=== PATIENT | male | born 1970 | race Caucasian/White ===

== ENCOUNTER 2016-11-10 16:51 | Observation (INO) | payer OTHER ==
[~2016-11-10] VITALS: Ht 182.9 cm; Wt 78.4 kg
[~2016-11-10 16:51] MED LIST: ASPIR-LOW81 MG PO; ASPIRIN E.C. 8181 MG PO; ATIVAN 1MG T1 MG/TAB PO; ATIVAN2 MG PO; B-1100 MG PO; BACTRIM DS 8001 TAB PO; CARAFATE 1GM1 G PO; CARAFATE S1 GM/10 ML PO; CEFTIN250 M1 PO; CEFTIN250 MG PO; CEPHALEXIN500 M1 PO; CIPRO 500MG TA500 MG PO; DAZIDOX10 MG PO; DILAUDID 2MG TAB2 MG PO; DILAUDID 4MG TAB4 MG PO; FLOMAX 0.40.4 MG/CAP PO; FOLIC ACID 11 MG/TA1 PO; GLUCOPHAGE500 MG/TAB PO; GLUCOTROL 5M5 MG/TAB PO; IBUPROFEN800 MG PO; K-DUR20 MEQ PO; LEVAQUIN 750MG750 M1 PO; LOPRESSOR100 MG PO; LORTAB 5/500 501 TAB PO; MAALOX PLUS 3030 ML PO; MS CONTIN 330 MG/TAB PO; MULTIPLE VITAMI1 CAP PO; Miralax Packet PO; NEXIUM 40MG40 MG PO; NICODERM C21 MG/PATC TD; NORCO 325 MG-51 TAB PO; NORCO 325 MG-7.1 TAB PO; NORVASC 10MG10 MG PO; OXY IR5 MG PO; PANCREAZE 437501 ECC PO; PEPCID 20MG TAB20 MG; PERCOCET 325 MG1 TA2 PO; PERCOCET 325 MG1 TAB PO; PERCR 7.5 PO; PHENERGAN 25 TA25 MG PO; PRIL40; PRILOSEC 20MG20 MG PO; PRILOTC; PRINIVIL10 MG PO; ROXICODONE 55 MG/TAB PO; SENOKOT S 50 MG1 TAB PO; THERAGRAN TAB1 UDTAB PO; THERAGRAN1 TA1 PO; THIAMINE 1100 MG/TAB PO; THIAMINE HCL PO; TOPROL XL100 MG PO; ULTRAM 50MG TAB50 MG PO; ULTRAM100 MG PO; VALIUM 10MG10 MG/TAB PO; ZESTRIL 10MG10 MG PO; ZESTRIL 20MG TA20 MG PO; ZITHROMAX Z PA250 MG PO; ZOFRAN 4MG T4 MG/TAB PO
[2016-11-10 19:45] LABS: BASO % 0.7 % (0.0-2.0); EOS % 0.5 % (0-4.0); GRAN # 4.1 (1.4-6.5); GRAN % 67.6 % (42.2-75.2); HEMATOCRIT 44.2 % (42.0-52.0); HEMOGLOBIN 15.1 g/dl (13.5-18.0); LYMPH # 1.2 (1.2-3.4); LYMPH % 19.8 % (20.0-51.0); MEAN CELL VOLUME 101 fl (80.0-100.0); MEAN CORPUSCULAR HEMOGLOBIN 35 pg (27.0-31.0); MEAN CORPUSCULAR HGB CONC 34 g/dl (33.0-37.0); MEAN PLATELET VOLUME 10.6 fl (7.4-10.4); MONO # 0.7 (0.1-0.6); MONO % 11.1 % (1.7-9.3); PLATELET COUNT 94 K/mm3 (130-400); RED BLOOD COUNT 4.36 M/mm3 (4.20-5.60); REDCELL DISTRIBUTION WIDTH-CV 12.3 % (11.5-14.5)
[2016-11-10 19:54] LABS: ADJUSTED CALCIUM 9.3 mg/dL (8.4-10.2); ALBUMIN 3.9 gm/dL (3.5-5.0); BILIRUBIN,TOTAL 1.1 mg/dL (0.0-1.0); CALCIUM 9.2 mg/dL (8.4-10.2); CREATININE, serum 0.6 mg/dL (0.66-1.25); POTASSIUM 3.6 mmol/L (3.4-5.0); TOTAL PROTEIN 7.9 gm/dL (6.4-8.2)
[2016-11-10 20:31] LABS: PH 7 (5-8); SQUAMOUS EPITHELIAL 0-2 /hpf; URINE APPEARANCE Clear; URINE BACTERIA None Seen /hpf; URINE BILIRUBIN Negative (NEGATIVE); URINE BLOOD Negative (NEGATIVE); URINE COLOR Yellow; URINE GLUCOSE 3+ (NEGATIVE); URINE KETONE Trace (NEGATIVE); URINE WBC 0-2 /hpf
[2016-11-10 21:34] VITALS: BP 144/98; PULSE 90; TEMP 98.9
[2016-11-10 23:25] VITALS: BP 135/55; BP 144/92; PULSE 107; PULSE 98; TEMP 98.5
[2016-11-11 05:00] VITALS: BP 148/97; PULSE 73; TEMP 98.3
[2016-11-11 07:57] VITALS: BP 146/95; PULSE 76; TEMP 98.3
[2016-11-11] MEDS ORDERED: ZESTRIL 20MG TA20 MG PO (10:56)
[2016-11-11] MEDS ORDERED: LOPRESSOR100 MG PO (10:56)
[2016-11-11] MEDS ORDERED: NEURONTIN100 MG/CAP PO (10:57)
[2016-11-11] MEDS ORDERED: K-DUR20 MEQ PO (10:57)
[2016-11-11] MEDS ORDERED: PRILOTC PO (10:58)
[2016-11-11] MEDS ORDERED: GLUCOPHAGE500 MG/TAB PO (10:58)
[2016-11-11] MEDS ORDERED: NEXIUM 40MG40 MG PO (10:58)
[2016-11-11] MEDS ORDERED: GLUCOTROL 5M5 MG/TAB PO (10:58)
[2016-11-11] MEDS ORDERED: B-121000 MCG PO (10:59)
[2016-11-11] MEDS ORDERED: NATURE'S BLEND100 M2 PO (11:00)
[2016-11-11] MEDS ORDERED: ULTRAM 50MG TAB50 MG PO (11:02)
[2016-11-11] MEDS ORDERED: VIOKACE10 PO (11:11)
[2016-11-11 11:52] VITALS: BP 161/98; PULSE 78; TEMP 98.3
== END 2016-11-11 13:10 | disposition home or self-care (01) ==
LOC: COL.ER 16:51 → MEDICAL 20:49
PROVIDERS: Family Medicine
DX: K86.0 Alcohol-induced chronic pancreatitis (principal); R52 Pain, unspecified; F10.20 Alcohol dependence, uncomplicated; I10 Essential (primary) hypertension; E11.40 Type 2 diabetes mellitus with diabetic neuropathy, unspecified; Z91.14 Patient's other noncompliance with medication regimen; I49.9 Cardiac arrhythmia, unspecified
CPT/HCPCS: G0378; J2270; J2405; J7030

== ENCOUNTER 2016-11-14 16:15 | Emergency (ER) | payer OTHER ==
[~2016-11-14] VITALS: Ht 182.9 cm; Wt 77.3 kg
[~2016-11-14 16:15] MED LIST changes: +B-121000 MCG PO; +NATURE'S BLEND100 M2 PO; +NEURONTIN100 MG/CAP PO; +PRILOTC PO; +VIOKACE10 PO
[2016-11-14 16:17] VITALS: TEMP 98.4
[2016-11-14 17:05] LABS: BASO % 0.6 % (0.0-2.0); EOS # 0.2 (0.0-0.7); EOS % 2.1 % (0-4.0); GRAN # 4.6 (1.4-6.5); GRAN % 62.9 % (42.2-75.2); HEMATOCRIT 45.5 % (42.0-52.0); HEMOGLOBIN 15.8 g/dl (13.5-18.0); LYMPH # 1.5 (1.2-3.4); LYMPH % 20.7 % (20.0-51.0); MEAN CELL VOLUME 103 fl (80.0-100.0); MEAN CORPUSCULAR HEMOGLOBIN 36 pg (27.0-31.0); MEAN CORPUSCULAR HGB CONC 35 g/dl (33.0-37.0); MEAN PLATELET VOLUME 10.8 fl (7.4-10.4); MONO % 13.1 % (1.7-9.3); PLATELET COUNT 140 K/mm3 (130-400); RED BLOOD COUNT 4.42 M/mm3 (4.20-5.60); REDCELL DISTRIBUTION WIDTH-CV 11.9 % (11.5-14.5); WHITE BLOOD COUNT 7.3 K/mm3 (4.8-10.8)
[2016-11-14 17:18] LABS: ADJUSTED CALCIUM 9.8 mg/dL (8.4-10.2); ALANINE AMINOTRANSFERASE 113 U/L (21-72); ALBUMIN 4.2 gm/dL (3.5-5.0); ALKALINE PHOSPHATASE 161 U/L (50-136); AMYLASE 169 U/L (30-110); ANION GAP 14 mmol/L (7-16); BILIRUBIN,TOTAL 1.2 mg/dL (0.0-1.0); BLOOD UREA NITROGEN 12 mg/dL (9-20); CARBON DIOXIDE 25 mmol/L (22-30); CHLORIDE 100 mmol/L (98-107); CREATININE, serum 0.59 mg/dL (0.66-1.25); GLUCOSE 317 mg/dL (74-106); LIPASE 1268 U/L (23-300); POTASSIUM 3.7 mmol/L (3.4-5.0); SODIUM 139 mmol/L (137-145); TOTAL PROTEIN 8.4 gm/dL (6.4-8.2)
[2016-11-14] MEDS ORDERED: GLUCOTROL10 MG PO (19:00)
[2016-11-14 19:13] VITALS: BP 113/83; PULSE 69
[2016-11-14] MEDS ORDERED: GLUCOPHAGE500 MG/TAB PO (19:17)
== END 2016-11-14 19:14 | disposition home or self-care (01) ==
LOC: COL.ER 16:15
PROVIDERS: Emergency Medicine
DX: E10.65 Type 1 diabetes mellitus with hyperglycemia (principal); Z79.4 Long term (current) use of insulin; R53.81 Other malaise; K86.1 Other chronic pancreatitis
CPT/HCPCS: J1170; J1815; J2550; J3411; J3475; J7030

== ENCOUNTER 2017-01-06 08:26 | Emergency (ER) | payer OTHER ==
[~2017-01-06] VITALS: Ht 182.9 cm; Wt 80.0 kg
[~2017-01-06 08:26] MED LIST changes: +GLUCOTROL10 MG PO
[2017-01-06 08:28] VITALS: TEMP 97.5
[2017-01-06] MEDS ORDERED: GLUCOPHAGE1000 MG PO (09:11)
[2017-01-06 09:27] LABS: PH 5 (5-8); SQUAMOUS EPITHELIAL 0-2 /hpf; URINE APPEARANCE Clear; URINE BACTERIA None Seen /hpf; URINE BILIRUBIN Negative (NEGATIVE); URINE BLOOD 2+ (NEGATIVE); URINE COLOR Yellow; URINE GLUCOSE 3+ (NEGATIVE); URINE KETONE Trace (NEGATIVE); URINE UROBILINOGEN Negative (NEGATIVE); URINE WBC 0-2 /hpf
[2017-01-06] MEDS ORDERED: ULTRAM 50MG TAB50 MG PO (09:48)
[2017-01-06 10:34] VITALS: BP 136/94; PULSE 77
== END 2017-01-06 10:31 | disposition home or self-care (01) ==
LOC: COL.ER 08:26
PROVIDERS: Physician Assistant
DX: M25.511 Pain in right shoulder (principal); E11.9 Type 2 diabetes mellitus without complications; Z79.84 Long term (current) use of oral hypoglycemic drugs; I10 Essential (primary) hypertension; F17.210 Nicotine dependence, cigarettes, uncomplicated

== ENCOUNTER → 2017-01-13 | Outpatient (CLI) | payer OTHER ==
[~2017-01-13] MED LIST changes: +GLUCOPHAGE1000 MG PO
== END ==
LOC: SUN.DIA
DX: E11.40 Type 2 diabetes mellitus with diabetic neuropathy, unspecified (principal); E11.65 Type 2 diabetes mellitus with hyperglycemia; Z68.23 Body mass index [BMI] 23.0-23.9, adult; Z79.84 Long term (current) use of oral hypoglycemic drugs; Z71.3 Dietary counseling and surveillance; I10 Essential (primary) hypertension; F17.210 Nicotine dependence, cigarettes, uncomplicated
CPT/HCPCS: G0108

== ENCOUNTER → 2017-02-09 | Outpatient (CLI) | payer OTHER | LOC: COL.RAD 08:06 | DX: M25.411 Effusion, right shoulder (principal); M19.011 Primary osteoarthritis, right shoulder ==

== ENCOUNTER → 2017-03-09 | Outpatient (CLI) | payer SELFPAY | LOC: SUN.DIA 01-20 10:29 | DX: E11.65 Type 2 diabetes mellitus with hyperglycemia (principal); E11.42 Type 2 diabetes mellitus with diabetic polyneuropathy; Z68.23 Body mass index [BMI] 23.0-23.9, adult; Z71.3 Dietary counseling and surveillance; I10 Essential (primary) hypertension; F17.210 Nicotine dependence, cigarettes, uncomplicated | CPT/HCPCS: G0108 ==

== ENCOUNTER 2017-05-18 08:15 | Outpatient (RCR) | payer OTHER | END 2017-07-06 11:00 | LOC: MKS.ESL.PT 08:15 | DX: M25.511 Pain in right shoulder (principal) | CPT/HCPCS: G0283-GP ==

== ENCOUNTER → 2017-08-09 | Outpatient (CLI) | payer SELFPAY ==
[2017-08-09 13:09] LABS: ADJUSTED CALCIUM 9.4 mg/dL (8.4-10.2); ALBUMIN 4.3 gm/dL (3.5-5.0); BILIRUBIN,TOTAL 0.4 mg/dL (0.0-1.0); CALCIUM 9.6 mg/dL (8.4-10.2); CREATININE, serum 0.56 mg/dL (0.66-1.25); POTASSIUM 3.9 mmol/L (3.4-5.0); TOTAL PROTEIN 7.5 gm/dL (6.4-8.2)
[2017-08-09 13:39] LABS: HEMATOCRIT 47.9 % (42.0-52.0); HEMOGLOBIN 16.5 g/dl (13.5-18.0); MEAN CELL VOLUME 91 fl (80.0-100.0); MEAN CORPUSCULAR HEMOGLOBIN 31 pg (27.0-31.0); MEAN CORPUSCULAR HGB CONC 34 g/dl (33.0-37.0); MEAN PLATELET VOLUME 10.5 fl (7.4-10.4); PLATELET COUNT 317 K/mm3 (130-400); RED BLOOD COUNT 5.26 M/mm3 (4.20-5.60); WHITE BLOOD COUNT 9.4 K/mm3 (4.8-10.8)
[2017-08-09 13:40] LABS: PSA-TOTAL 0.88 ng/mL (0-4)
== END ==
LOC: COL.LAB 12:17
DX: N20.0 Calculus of kidney (principal); K86.89 Other specified diseases of pancreas; E11.9 Type 2 diabetes mellitus without complications; R63.4 Abnormal weight loss; R53.83 Other fatigue
CPT/HCPCS: G0103

== ENCOUNTER → 2017-09-07 | Outpatient (CLI) | payer OTHER ==
[2017-09-07 08:17] LABS: BASO # 0.1 (0.0-0.2); BASO % 0.7 % (0.0-2.0); EOS # 0.2 (0.0-0.7); EOS % 2.5 % (0-4.0); GRAN # 6.1 (1.4-6.5); GRAN % 66.4 % (42.2-75.2); HEMATOCRIT 50.3 % (42.0-52.0); LYMPH % 22.3 % (20.0-51.0); MEAN CELL VOLUME 91 fl (80.0-100.0); MEAN CORPUSCULAR HEMOGLOBIN 31 pg (27.0-31.0); MEAN CORPUSCULAR HGB CONC 34 g/dl (33.0-37.0); MONO # 0.7 (0.1-0.6); MONO % 7.6 % (1.7-9.3); PLATELET COUNT 345 K/mm3 (130-400); RED BLOOD COUNT 5.52 M/mm3 (4.20-5.60); WHITE BLOOD COUNT 9.2 K/mm3 (4.8-10.8)
[2017-09-07 08:26] LABS: ADJUSTED CALCIUM 9.6 mg/dL (8.4-10.2); ALANINE AMINOTRANSFERASE 21 U/L (21-72); ALBUMIN 4.6 gm/dL (3.5-5.0); ALKALINE PHOSPHATASE 84 U/L (50-136); ANION GAP 11 mmol/L (7-16); BILIRUBIN,TOTAL 0.5 mg/dL (0.0-1.0); BLOOD UREA NITROGEN 17 mg/dL (9-20); CALCIUM 10.1 mg/dL (8.4-10.2); CARBON DIOXIDE 24 mmol/L (22-30); CHLORIDE 101 mmol/L (98-107); CREATININE, serum 0.52 mg/dL (0.66-1.25); GLUCOSE 224 mg/dL (74-106); LIPASE 86 U/L (23-300); POTASSIUM 4.4 mmol/L (3.4-5.0); SODIUM 137 mmol/L (137-145); TOTAL PROTEIN 7.8 gm/dL (6.4-8.2)
[2017-09-07 08:32] LABS: AMYLASE < 30 U/L (30-110)
== END ==
LOC: COL.RAD 09-02 10:30 → COL.LAB 07:21 → COL.RAD 07:30
PROVIDERS: Internal Medicine Gastroenterology
DX: K82.4 Cholesterolosis of gallbladder (principal); F10.20 Alcohol dependence, uncomplicated; K86.1 Other chronic pancreatitis; Z80.0 Family history of malignant neoplasm of digestive organs

== ENCOUNTER → 2017-09-17 | Outpatient (CLI) | payer OTHER | LOC: COL.RAD 08:02 | DX: K86.1 Other chronic pancreatitis (principal); R10.30 Lower abdominal pain, unspecified; F10.20 Alcohol dependence, uncomplicated; Z80.0 Family history of malignant neoplasm of digestive organs | CPT/HCPCS: A9537 ==

== ENCOUNTER → 2017-09-28 | Outpatient (CLI) | payer OTHER ==
[~2017-09-28] MED LIST changes: +LEVEMIR100 U/ML
== END ==
LOC: SUN.DIA 10:10
DX: E11.40 Type 2 diabetes mellitus with diabetic neuropathy, unspecified (principal); I11.9 Hypertensive heart disease without heart failure; F17.210 Nicotine dependence, cigarettes, uncomplicated; Z68.23 Body mass index [BMI] 23.0-23.9, adult; Z71.3 Dietary counseling and surveillance
CPT/HCPCS: G0108

== ENCOUNTER 2017-10-25 17:19 | Emergency (ER) | payer OTHER ==
[~2017-10-25] VITALS: Ht 182.9 cm; Wt 76.4 kg
[2017-10-25 17:25] VITALS: TEMP 98.3
[2017-10-25] MEDS ORDERED: ZOFRAN ODT4 MG PO (18:41)
[2017-10-25] MEDS ORDERED: PERCOCET 325 MG1 TAB PO (18:41)
[2017-10-25 19:19] VITALS: BP 133/95; PULSE 89
== END 2017-10-25 19:19 | disposition home or self-care (01) ==
LOC: COL.ER 17:19
DX: K86.1 Other chronic pancreatitis (principal); K80.50 Calculus of bile duct without cholangitis or cholecystitis without obstruction; E11.9 Type 2 diabetes mellitus without complications; I10 Essential (primary) hypertension; Z79.4 Long term (current) use of insulin
CPT/HCPCS: J1170

== ENCOUNTER 2017-10-28 09:16 | Day surgery (SDC) | payer OTHER ==
[~2017-10-28] VITALS: Ht 182.9 cm; Wt 76.0 kg
[2017-10-28] VITALS (10 sets, daily range): BP systolic 84–122; BP diastolic 48–85; PULSE 55–72; TEMP 97.6–97.7
[~2017-10-28 09:16] MED LIST changes: +ZOFRAN ODT4 MG PO
[2017-10-28] MEDS ORDERED: PERCOCET 325 MG1 TAB PO (10:18)
[2017-10-28] MEDS ORDERED: VITAMIN B COMPL1 SGL PO (10:23)
[2017-10-28] MEDS ORDERED: K-DUR 10 MEQ T10 MEQ PO (10:24)
== END 2017-10-28 18:30 | disposition home or self-care (01) ==
LOC: SDCO 09:16
DX: K81.1 Chronic cholecystitis (principal); I10 Essential (primary) hypertension; F17.210 Nicotine dependence, cigarettes, uncomplicated; J44.9 Chronic obstructive pulmonary disease, unspecified; K21.9 Gastro-esophageal reflux disease without esophagitis; F10.21 Alcohol dependence, in remission; Z79.4 Long term (current) use of insulin; E08.40 Diabetes mellitus due to underlying condition with diabetic neuropathy, unspecified; K86.0 Alcohol-induced chronic pancreatitis
CPT/HCPCS: J1170; J1885; J2270; J2405; J2704; J3010; J7030; Q9967

== ENCOUNTER → 2017-11-09 | Outpatient (CLI) | payer OTHER ==
[~2017-11-09] MED LIST changes: +HUMALOG100 U/ML SQ; +K-DUR 10 MEQ T10 MEQ PO; +TRESIBA FL100 UNIT/1 SQ; +VITAMIN B COMPL1 SGL PO
== END ==
LOC: SUN.DIA 08:37
DX: E11.40 Type 2 diabetes mellitus with diabetic neuropathy, unspecified (principal); I11.9 Hypertensive heart disease without heart failure; Z68.22 Body mass index [BMI] 22.0-22.9, adult; Z71.3 Dietary counseling and surveillance; F17.210 Nicotine dependence, cigarettes, uncomplicated
CPT/HCPCS: G0108

== ENCOUNTER 2017-11-10 16:16 | Emergency (ER) | payer OTHER ==
[~2017-11-10] VITALS: Ht 182.9 cm; Wt 73.2 kg
[~2017-11-10 16:16] MED LIST changes: -HUMALOG100 U/ML SQ; -TRESIBA FL100 UNIT/1 SQ
[2017-11-10 16:18] VITALS: TEMP 98.6
[2017-11-10 17:50] LABS: BASO # 0.1 (0.0-0.2); BASO % 0.5 % (0.0-2.0); EOS # 0.3 (0.0-0.7); EOS % 3.1 % (0-4.0); GRAN # 6.3 (1.4-6.5); GRAN % 61.6 % (42.2-75.2); HEMATOCRIT 48.4 % (42.0-52.0); HEMOGLOBIN 16.6 g/dl (13.5-18.0); LYMPH # 2.7 (1.2-3.4); LYMPH % 26.1 % (20.0-51.0); MEAN CELL VOLUME 90 fl (80.0-100.0); MEAN CORPUSCULAR HEMOGLOBIN 31 pg (27.0-31.0); MEAN CORPUSCULAR HGB CONC 34 g/dl (33.0-37.0); MEAN PLATELET VOLUME 9.8 fl (7.4-10.4); MONO # 0.8 (0.1-0.6); MONO % 8.1 % (1.7-9.3); PLATELET COUNT 334 K/mm3 (130-400); RED BLOOD COUNT 5.41 M/mm3 (4.20-5.60); REDCELL DISTRIBUTION WIDTH-CV 13.2 % (11.5-14.5)
[2017-11-10] MEDS ORDERED: TRESIBA FL100 UNIT/1 SQ (18:04)
[2017-11-10] MEDS ORDERED: NEURONTIN100 MG/CAP PO (18:05)
[2017-11-10] MEDS ORDERED: HUMALOG100 U/ML SQ (18:06)
[2017-11-10 18:13] LABS: ALBUMIN 4.7 gm/dL (3.5-5.0); BILIRUBIN,TOTAL 0.4 mg/dL (0.0-1.0); CALCIUM 9.6 mg/dL (8.4-10.2); CREATININE, serum 0.75 mg/dL (0.66-1.25); POTASSIUM 4.1 mmol/L (3.4-5.0); TOTAL PROTEIN 7.8 gm/dL (6.4-8.2)
[2017-11-10 18:21] LABS: COLLECTION METHOD CLEAN CATCH
[2017-11-10 18:37] LABS: PH 6 (5-8); SQUAMOUS EPITHELIAL None Seen /hpf; URINE APPEARANCE Clear; URINE BACTERIA None Seen /hpf; URINE BILIRUBIN Negative (NEGATIVE); URINE BLOOD Negative (NEGATIVE); URINE COLOR Straw; URINE GLUCOSE 3+ (NEGATIVE); URINE KETONE Negative (NEGATIVE); URINE LEUKOCYTE ESTERASE Negative (NEGATIVE); URINE NITRATE Negative (NEGATIVE); URINE PROTEIN(semi-quant) Negative (NEGATIVE); URINE RBC 0-2 /hpf; URINE UROBILINOGEN Negative (NEGATIVE); URINE WBC 0-2 /hpf
[2017-11-10] MEDS ORDERED: PERCOCET 325 MG1 TAB PO (19:32)
[2017-11-10 19:35] VITALS: BP 127/91; PULSE 85
== END 2017-11-10 19:37 | disposition home or self-care (01) ==
LOC: COL.ER 16:16
PROVIDERS: Emergency Medicine
DX: R10.13 Epigastric pain (principal); R10.12 Left upper quadrant pain; G89.29 Other chronic pain; E11.9 Type 2 diabetes mellitus without complications; J44.9 Chronic obstructive pulmonary disease, unspecified; F17.200 Nicotine dependence, unspecified, uncomplicated; Z90.49 Acquired absence of other specified parts of digestive tract; Z98.890 Other specified postprocedural states; Z79.4 Long term (current) use of insulin; R11.2 Nausea with vomiting, unspecified; Z87.442 Personal history of urinary calculi; Z87.19 Personal history of other diseases of the digestive system
CPT/HCPCS: J1170; J2405; J7030

== ENCOUNTER → 2017-11-15 | Outpatient (CLI) | payer SELFPAY ==
[~2017-11-15] MED LIST changes: +HUMALOG100 U/ML SQ; +TRESIBA FL100 UNIT/1 SQ
== END ==
LOC: MHCPAIN 09:17
DX: G89.29 Other chronic pain (principal); M79.2 Neuralgia and neuritis, unspecified; M79.1 Myalgia; R10.9 Unspecified abdominal pain; M47.816 Spondylosis without myelopathy or radiculopathy, lumbar region; F17.200 Nicotine dependence, unspecified, uncomplicated
CPT/HCPCS: G0463

== ENCOUNTER → 2017-11-23 | Outpatient (CLI) | payer OTHER | LOC: SUN.DIA | DX: E11.40 Type 2 diabetes mellitus with diabetic neuropathy, unspecified (principal); Z79.4 Long term (current) use of insulin; I11.9 Hypertensive heart disease without heart failure; Z68.22 Body mass index [BMI] 22.0-22.9, adult; Z71.3 Dietary counseling and surveillance; F17.210 Nicotine dependence, cigarettes, uncomplicated | CPT/HCPCS: G0108 ==

== ENCOUNTER → 2017-12-13 | Outpatient (CLI) | payer OTHER | LOC: MHCPAIN 07:55 | DX: G89.29 Other chronic pain (principal); M79.2 Neuralgia and neuritis, unspecified; M79.1 Myalgia | CPT/HCPCS: G0463 ==

== ENCOUNTER 2017-12-31 06:40 | Day surgery (SDC) | payer OTHER ==
[~2017-12-31] VITALS: Ht 182.9 cm; Wt 75.0 kg
[~2017-12-31 06:40] MED LIST changes: -MORPHINE 1515 MG/TAB PO; -NEURONTIN600 MG/TAB PO; -ZESTRIL30 MG PO
[2017-12-31 07:23] VITALS: BP 106/74; PULSE 69; TEMP 98.3
[2017-12-31] MEDS ORDERED: TRESIBA FL100 UNIT/1 SQ (07:39)
[2017-12-31] MEDS ORDERED: HUMALOG100 U/ML SQ (07:40)
[2017-12-31] MEDS ORDERED: TOPROL XL100 MG PO (07:41)
[2017-12-31] MEDS ORDERED: ZESTRIL30 MG PO (07:43)
[2017-12-31] MEDS ORDERED: MORPHINE 1515 MG/TAB PO (07:43)
[2017-12-31] MEDS ORDERED: NEURONTIN600 MG/TAB PO (07:45)
[2017-12-31 08:40] VITALS: BP 95/64; PULSE 63; TEMP 97.8
[2017-12-31 08:55] VITALS: BP 87/58; PULSE 74
[2017-12-31 09:10] VITALS: BP 85/60; PULSE 59
[2017-12-31 09:25] VITALS: BP 87/59; PULSE 70
== END 2017-12-31 10:27 | disposition home or self-care (01) ==
LOC: SDCO 06:40
DX: Z12.11 Encounter for screening for malignant neoplasm of colon (principal); K86.1 Other chronic pancreatitis; F41.9 Anxiety disorder, unspecified; F32.9 Major depressive disorder, single episode, unspecified; F10.20 Alcohol dependence, uncomplicated; Z79.84 Long term (current) use of oral hypoglycemic drugs; Z80.0 Family history of malignant neoplasm of digestive organs
CPT/HCPCS: J2250; J2405; J3010; J7030

== ENCOUNTER → 2017-12-31 | Outpatient (CLI) | payer OTHER ==
[~2017-12-31] MED LIST changes: +MORPHINE 1515 MG/TAB PO; +NEURONTIN600 MG/TAB PO; +ZESTRIL30 MG PO
== END ==
LOC: COL.RAD 09:41
DX: M43.17 Spondylolisthesis, lumbosacral region (principal); M16.12 Unilateral primary osteoarthritis, left hip; M43.07 Spondylolysis, lumbosacral region

== ENCOUNTER → 2018-01-13 | Outpatient (CLI) | payer OTHER ==
[~2018-01-13] MED LIST changes: +MORPHINE 1515 MG/TAB PO; +NEURONTIN600 MG/TAB PO; +ZESTRIL30 MG PO
== END ==
LOC: SUN.DIA
DX: E11.40 Type 2 diabetes mellitus with diabetic neuropathy, unspecified (principal); Z79.4 Long term (current) use of insulin; I11.9 Hypertensive heart disease without heart failure; Z68.22 Body mass index [BMI] 22.0-22.9, adult; Z71.3 Dietary counseling and surveillance; F17.210 Nicotine dependence, cigarettes, uncomplicated
CPT/HCPCS: G0108

== ENCOUNTER 2018-01-20 17:13 | Emergency (ER) | payer OTHER ==
[~2018-01-20] VITALS: Ht 182.9 cm; Wt 72.7 kg
[2018-01-20] MEDS ORDERED: MORPHINE 1515 MG/TAB PO (17:48)
[2018-01-20] MEDS ORDERED: PRILOTC (17:48)
[2018-01-20 17:49] VITALS: TEMP 98.2
[2018-01-20 18:06] LABS: BASO % 0.3 % (0.0-2.0); EOS # 0.2 (0.0-0.7); EOS % 2.1 % (0-4.0); GRAN # 6.9 (1.4-6.5); GRAN % 69.8 % (42.2-75.2); HEMATOCRIT 47.3 % (42.0-52.0); LYMPH # 2.1 (1.2-3.4); LYMPH % 20.8 % (20.0-51.0); MEAN CELL VOLUME 91 fl (80.0-100.0); MEAN CORPUSCULAR HEMOGLOBIN 31 pg (27.0-31.0); MEAN CORPUSCULAR HGB CONC 34 g/dl (33.0-37.0); MONO # 0.7 (0.1-0.6); MONO % 6.6 % (1.7-9.3); PLATELET COUNT 300 K/mm3 (130-400); RED BLOOD COUNT 5.22 M/mm3 (4.20-5.60); REDCELL DISTRIBUTION WIDTH-CV 12.7 % (11.5-14.5)
[2018-01-20 18:11] LABS: COLLECTION METHOD CLEAN CATCH
[2018-01-20 18:15] LABS: ALBUMIN 4.3 gm/dL (3.5-5.0); BILIRUBIN,TOTAL 0.3 mg/dL (0.0-1.0); CALCIUM 9.5 mg/dL (8.4-10.2); CREATININE, serum 0.59 mg/dL (0.66-1.25); POTASSIUM 4.4 mmol/L (3.4-5.0); TOTAL PROTEIN 8.2 gm/dL (6.4-8.2)
[2018-01-20 18:21] VITALS: BP 127/84
[2018-01-20 18:21] LABS: PH 6 (5-8); SQUAMOUS EPITHELIAL None Seen /hpf; URINE APPEARANCE Clear; URINE BACTERIA None Seen /hpf; URINE BILIRUBIN Negative (NEGATIVE); URINE BLOOD Negative (NEGATIVE); URINE COLOR Straw; URINE GLUCOSE 3+ (NEGATIVE); URINE KETONE Negative (NEGATIVE); URINE LEUKOCYTE ESTERASE Negative (NEGATIVE); URINE NITRATE Negative (NEGATIVE); URINE PROTEIN(semi-quant) Negative (NEGATIVE); URINE RBC 0-2 /hpf; URINE UROBILINOGEN Negative (NEGATIVE)
[2018-01-20] MEDS ORDERED: PERCOCET 325 MG1 TAB PO (20:08)
[2018-01-20 20:23] VITALS: PULSE 100
== END 2018-01-20 20:27 | disposition home or self-care (01) ==
LOC: COL.ER 17:13
PROVIDERS: Emergency Medicine
DX: E11.65 Type 2 diabetes mellitus with hyperglycemia (principal); G89.29 Other chronic pain; F17.210 Nicotine dependence, cigarettes, uncomplicated; K21.9 Gastro-esophageal reflux disease without esophagitis; K86.1 Other chronic pancreatitis; Z87.442 Personal history of urinary calculi; Z90.49 Acquired absence of other specified parts of digestive tract; Z98.890 Other specified postprocedural states; Z79.4 Long term (current) use of insulin
CPT/HCPCS: J1815; J2765; J3010; J7030

== ENCOUNTER → 2018-01-24 | Outpatient (CLI) | payer OTHER | LOC: MHCPAIN 11:17 | DX: G89.29 Other chronic pain (principal); R10.9 Unspecified abdominal pain; M79.2 Neuralgia and neuritis, unspecified | CPT/HCPCS: G0463 ==

== ENCOUNTER → 2018-02-02 | Outpatient (CLI) | payer OTHER | LOC: MHCPAIN 08:21 | DX: G89.29 Other chronic pain (principal); M79.2 Neuralgia and neuritis, unspecified; M79.1 Myalgia | CPT/HCPCS: G0463 ==

== ENCOUNTER → 2018-02-23 | Outpatient (CLI) | payer OTHER | LOC: MHCPAIN 07:54 | DX: G89.29 Other chronic pain (principal); R10.9 Unspecified abdominal pain; M79.2 Neuralgia and neuritis, unspecified; F17.200 Nicotine dependence, unspecified, uncomplicated | CPT/HCPCS: G0463 ==

== ENCOUNTER → 2018-03-23 | Outpatient (CLI) | payer OTHER | LOC: MHCPAIN 08:05 | DX: G89.29 Other chronic pain (principal); M79.2 Neuralgia and neuritis, unspecified; M79.1 Myalgia; R10.9 Unspecified abdominal pain | CPT/HCPCS: G0463 ==

== ENCOUNTER → 2018-03-30 | Outpatient (CLI) | payer OTHER | LOC: SUN.DIA 10:38 | DX: Z01.89 Encounter for other specified special examinations (principal) ==

== ENCOUNTER → 2018-04-06 | Outpatient (CLI) | payer MEDICAID | LOC: SUN.DIA 12:55 | DX: E11.40 Type 2 diabetes mellitus with diabetic neuropathy, unspecified (principal); Z79.4 Long term (current) use of insulin; I11.9 Hypertensive heart disease without heart failure; Z68.22 Body mass index [BMI] 22.0-22.9, adult; F17.210 Nicotine dependence, cigarettes, uncomplicated | CPT/HCPCS: G0108 ==

== ENCOUNTER → 2018-04-15 | Outpatient (CLI) | payer MEDICAID ==
[~2018-04-15] MED LIST changes: +DOLOPHINE HCL5 MG PO; +LEVEMIR FLEX100 U/ML SQ; +NEURONTIN300 MG/CAP PO; -NEURONTIN600 MG/TAB PO; +[UNRECOGNIZED DRUG - CODE] PO
== END ==
LOC: MHCPAIN 10:07
DX: G89.29 Other chronic pain (principal); M79.2 Neuralgia and neuritis, unspecified; M79.1 Myalgia; R10.9 Unspecified abdominal pain
CPT/HCPCS: G0463

== ENCOUNTER 2018-04-18 03:11 | Emergency (ER) | payer MEDICAID ==
[~2018-04-18] VITALS: Ht 182.9 cm; Wt 72.7 kg
[2018-04-18 03:15] VITALS: BP 164/85; TEMP 97.9
[2018-04-18 03:41] LABS: BASO % 0.3 % (0.0-2.0); EOS # 0.2 (0.0-0.7); EOS % 1.6 % (0-4.0); GRAN # 11.1 (1.4-6.5); GRAN % 75.3 % (42.2-75.2); HEMOGLOBIN 16.7 g/dl (13.5-18.0); LYMPH # 2.6 (1.2-3.4); LYMPH % 17.5 % (20.0-51.0); MEAN CELL VOLUME 89 fl (80.0-100.0); MEAN CORPUSCULAR HEMOGLOBIN 31 pg (27.0-31.0); MEAN CORPUSCULAR HGB CONC 35 g/dl (33.0-37.0); MEAN PLATELET VOLUME 10.1 fl (7.4-10.4); MONO # 0.7 (0.1-0.6); MONO % 4.9 % (1.7-9.3); PLATELET COUNT 305 K/mm3 (130-400); RED BLOOD COUNT 5.38 M/mm3 (4.20-5.60); REDCELL DISTRIBUTION WIDTH-CV 12.4 % (11.5-14.5)
[2018-04-18 03:54] LABS: ALBUMIN 4.1 gm/dL (3.5-5.0); BILIRUBIN,TOTAL 0.5 mg/dL (0.0-1.0); CALCIUM 9.8 mg/dL (8.4-10.2); CREATININE, serum 0.55 mg/dL (0.66-1.25); POTASSIUM 4.1 mmol/L (3.4-5.0); TOTAL PROTEIN 7.7 gm/dL (6.4-8.2)
[2018-04-18] MEDS ORDERED: CARAFATE 1GM1 G PO (04:52)
[2018-04-18] MEDS ORDERED: PERCOCET 325 MG1 TAB PO (04:52)
[2018-04-18 05:02] VITALS: PULSE 81
== END 2018-04-18 05:02 | disposition home or self-care (01) ==
LOC: COL.ER 03:11
PROVIDERS: Emergency Medicine
DX: K86.1 Other chronic pancreatitis (principal); E11.9 Type 2 diabetes mellitus without complications; I10 Essential (primary) hypertension; F17.210 Nicotine dependence, cigarettes, uncomplicated; Z90.49 Acquired absence of other specified parts of digestive tract; Z79.4 Long term (current) use of insulin
CPT/HCPCS: J1170; J2405; J2550; J7030; Q9967

== ENCOUNTER → 2018-05-30 | Outpatient (CLI) | payer MEDICAID | LOC: SUN.DIA 05:08 | DX: E11.40 Type 2 diabetes mellitus with diabetic neuropathy, unspecified (principal); I10 Essential (primary) hypertension; Z79.4 Long term (current) use of insulin; F17.210 Nicotine dependence, cigarettes, uncomplicated | CPT/HCPCS: G0108 ==

== ENCOUNTER → 2018-08-15 | Outpatient (CLI) | payer MEDICAID | LOC: SUN.DIA 13:11 | DX: E11.40 Type 2 diabetes mellitus with diabetic neuropathy, unspecified (principal); I10 Essential (primary) hypertension; Z79.4 Long term (current) use of insulin; F17.210 Nicotine dependence, cigarettes, uncomplicated | CPT/HCPCS: G0108 ==

== ENCOUNTER 2018-09-16 11:57 | Emergency (ER) | payer MEDICAID ==
[2018-09-16 12:11] VITALS: TEMP 98
[2018-09-16 13:48] LABS: BASO # 0.1 (0.0-0.2); BASO % 0.5 % (0.0-2.0); EOS # 0.2 (0.0-0.7); EOS % 1.7 % (0-4.0); GRAN # 8.1 (1.4-6.5); GRAN % 69.2 % (42.2-75.2); HEMATOCRIT 47.2 % (42.0-52.0); HEMOGLOBIN 15.8 g/dl (13.5-18.0); LYMPH # 2.7 (1.2-3.4); LYMPH % 22.6 % (20.0-51.0); MEAN CELL VOLUME 92 fl (80.0-100.0); MEAN CORPUSCULAR HEMOGLOBIN 31 pg (27.0-31.0); MEAN CORPUSCULAR HGB CONC 34 g/dl (33.0-37.0); MEAN PLATELET VOLUME 9.4 fl (7.4-10.4); MONO # 0.6 (0.1-0.6); MONO % 5.4 % (1.7-9.3); PLATELET COUNT 291 K/mm3 (130-400); RED BLOOD COUNT 5.13 M/mm3 (4.20-5.60); REDCELL DISTRIBUTION WIDTH-CV 12.9 % (11.5-14.5)
[2018-09-16 14:00] LABS: ALANINE AMINOTRANSFERASE 26 U/L (21-72); ALBUMIN 4.2 gm/dL (3.5-5.0); ALKALINE PHOSPHATASE 94 U/L (50-136); AMYLASE 48 U/L (30-110); ANION GAP 5 mmol/L (7-16); AST,SGOT 28 U/L (15-37); BILIRUBIN,TOTAL 0.4 mg/dL (0.0-1.0); BLOOD UREA NITROGEN 14 mg/dL (9-20); CALCIUM 9.4 mg/dL (8.4-10.2); CARBON DIOXIDE 31 mmol/L (22-30); CHLORIDE 104 mmol/L (98-107); CREATININE, serum 0.58 mg/dL (0.66-1.25); GLUCOSE 119 mg/dL (74-106); LIPASE 88 U/L (23-300); POTASSIUM 3.7 mmol/L (3.4-5.0); SODIUM 140 mmol/L (137-145); TOTAL PROTEIN 7.7 gm/dL (6.4-8.2)
[2018-09-16 14:05] LABS: COLLECTION METHOD CLEAN CATCH
[2018-09-16] MEDS ORDERED: LYRICA 75MG CAP75 MG PO (14:07)
[2018-09-16] MEDS ORDERED: LEVEMIR FLEX100 U/ML SQ (14:08)
[2018-09-16 14:13] LABS: TROPONIN-I < 0.012 ng/mL (0.000-0.034)
[2018-09-16 14:13] LABS: MUCOUS Present /lpf; PH 5 (5-8); SQUAMOUS EPITHELIAL None Seen /hpf; URINE APPEARANCE Clear; URINE BACTERIA None Seen /hpf; URINE BILIRUBIN Negative (NEGATIVE); URINE BLOOD Negative (NEGATIVE); URINE COLOR Yellow; URINE GLUCOSE 1+ (NEGATIVE); URINE KETONE Negative (NEGATIVE); URINE LEUKOCYTE ESTERASE Negative (NEGATIVE); URINE NITRATE Negative (NEGATIVE); URINE PROTEIN(semi-quant) Negative (NEGATIVE); URINE RBC 0-2 /hpf
[2018-09-16] MEDS ORDERED: NOVOLOG 100U100 U/M1 SQ (14:17)
[2018-09-16] MEDS ORDERED: PRINIVIL40 MG PO (14:18)
[2018-09-16] MEDS ORDERED: PRIL40 PO (14:19)
[2018-09-16] MEDS ORDERED: NORVASC 5MG5 MG/TAB PO (14:21)
[2018-09-16] MEDS ORDERED: ZOLOFT 100MG100 MG PO (14:21)
[2018-09-16] MEDS ORDERED: DESYREL 100MG100 MG PO (14:21)
[2018-09-16] MEDS ORDERED: AMOXICILLIN 50500 MG PO (14:22)
[2018-09-16] MEDS ORDERED: CARAFATE 1GM1 G PO ×2 (14:22→17:34)
[2018-09-16] MEDS ORDERED: PERCOCET 325 MG1 TAB PO (17:34)
[2018-09-16 17:52] VITALS: BP 121/78; PULSE 71
== END 2018-09-16 17:52 | disposition home or self-care (01) ==
LOC: COL.ER 11:57
PROVIDERS: Emergency Medicine
DX: K86.1 Other chronic pancreatitis (principal); F10.20 Alcohol dependence, uncomplicated; E11.9 Type 2 diabetes mellitus without complications; K21.9 Gastro-esophageal reflux disease without esophagitis; Z79.4 Long term (current) use of insulin; F17.210 Nicotine dependence, cigarettes, uncomplicated; Z90.49 Acquired absence of other specified parts of digestive tract
CPT/HCPCS: J1170; J1630

== ENCOUNTER 2018-10-06 14:11 | Emergency (ER) | payer MEDICAID ==
[~2018-10-06] VITALS: Ht 182.9 cm; Wt 81.8 kg
[~2018-10-06 14:11] MED LIST changes: +AMOXICILLIN 50500 MG PO; +DESYREL 100MG100 MG PO; +LYRICA 75MG CAP75 MG PO; +NORVASC 5MG5 MG/TAB PO; +NOVOLOG 100U100 U/M1 SQ; +PRIL40 PO; +PRINIVIL40 MG PO; +ZOLOFT 100MG100 MG PO
[2018-10-06 14:14] VITALS: TEMP 98.8
[2018-10-06] MEDS ORDERED: AMBIEN 5MG TABLE5 MG PO (14:43)
[2018-10-06 14:45] LABS: BASO % 0.3 % (0.0-2.0); EOS # 0.2 (0.0-0.7); EOS % 1.7 % (0-4.0); GRAN # 8.2 (1.4-6.5); GRAN % 68.1 % (42.2-75.2); HEMATOCRIT 46.7 % (42.0-52.0); HEMOGLOBIN 15.9 g/dl (13.5-18.0); LYMPH # 2.7 (1.2-3.4); LYMPH % 22.1 % (20.0-51.0); MEAN CELL VOLUME 91 fl (80.0-100.0); MEAN CORPUSCULAR HEMOGLOBIN 31 pg (27.0-31.0); MEAN CORPUSCULAR HGB CONC 34 g/dl (33.0-37.0); MEAN PLATELET VOLUME 9.3 fl (7.4-10.4); MONO # 0.9 (0.1-0.6); MONO % 7.4 % (1.7-9.3); PLATELET COUNT 332 K/mm3 (130-400); RED BLOOD COUNT 5.16 M/mm3 (4.20-5.60); REDCELL DISTRIBUTION WIDTH-CV 12.8 % (11.5-14.5)
[2018-10-06 14:48] LABS: COLLECTION METHOD CLEAN CATCH
[2018-10-06 14:54] LABS: PH 5 (5-8); SQUAMOUS EPITHELIAL None Seen /hpf; URINE APPEARANCE Clear; URINE BACTERIA None Seen /hpf; URINE BILIRUBIN Negative (NEGATIVE); URINE BLOOD Negative (NEGATIVE); URINE COLOR Yellow; URINE GLUCOSE 3+ (NEGATIVE); URINE KETONE Negative (NEGATIVE); URINE LEUKOCYTE ESTERASE Negative (NEGATIVE); URINE NITRATE Negative (NEGATIVE); URINE PROTEIN(semi-quant) Negative (NEGATIVE); URINE RBC 0-2 /hpf; URINE UROBILINOGEN >=4.0 mg/dL (NEGATIVE)
[2018-10-06 14:56] LABS: ALANINE AMINOTRANSFERASE 43 U/L (21-72); ALBUMIN 4.1 gm/dL (3.5-5.0); ALKALINE PHOSPHATASE 151 U/L (50-136); ANION GAP 6 mmol/L (7-16); AST,SGOT 22 U/L (15-37); BILIRUBIN,TOTAL 0.4 mg/dL (0.0-1.0); BLOOD UREA NITROGEN 10 mg/dL (9-20); C-REACTIVE PROTEIN 2.1 mg/dL (0.0-0.9); CALCIUM 9.4 mg/dL (8.4-10.2); CARBON DIOXIDE 28 mmol/L (22-30); CHLORIDE 105 mmol/L (98-107); CREATININE, serum 0.54 mg/dL (0.66-1.25); GLUCOSE 263 mg/dL (74-106); LIPASE 51 U/L (23-300); POTASSIUM 4.1 mmol/L (3.4-5.0); SODIUM 139 mmol/L (137-145); TOTAL PROTEIN 7.6 gm/dL (6.4-8.2)
[2018-10-06 15:21] LABS: ALCOHOL(ethanol),MEDICAL < 10 mg/dL; MAGNESIUM 1.9 mg/dL (1.6-2.3); PHOSPHOROUS 2.7 mg/dL (2.5-4.5)
[2018-10-06 15:29] LABS: TROPONIN-I < 0.012 ng/mL (0.000-0.034)
[2018-10-06 16:15] VITALS: BP 133/76; PULSE 88
== END 2018-10-06 16:16 | disposition home or self-care (01) ==
LOC: COL.ER 14:11
PROVIDERS: Family Medicine
DX: K86.1 Other chronic pancreatitis (principal); E11.9 Type 2 diabetes mellitus without complications; Z90.49 Acquired absence of other specified parts of digestive tract; Z87.891 Personal history of nicotine dependence; Z79.4 Long term (current) use of insulin
CPT/HCPCS: J1170; J2405; J7030; J7120

== ENCOUNTER 2018-10-19 07:08 | Emergency (ER) | payer MEDICAID ==
[~2018-10-19] VITALS: Ht 182.9 cm; Wt 81.8 kg
[~2018-10-19 07:08] MED LIST changes: +AMBIEN 5MG TABLE5 MG PO
[2018-10-19 07:13] VITALS: TEMP 98.1
[2018-10-19 07:53] LABS: BASO # 0.1 (0.0-0.2); BASO % 0.4 % (0.0-2.0); EOS # 0.3 (0.0-0.7); EOS % 2.6 % (0-4.0); GRAN # 8.5 (1.4-6.5); GRAN % 69.8 % (42.2-75.2); HEMATOCRIT 48.3 % (42.0-52.0); HEMOGLOBIN 16.3 g/dl (13.5-18.0); LYMPH # 2.5 (1.2-3.4); LYMPH % 20.3 % (20.0-51.0); MEAN CELL VOLUME 93 fl (80.0-100.0); MEAN CORPUSCULAR HEMOGLOBIN 31 pg (27.0-31.0); MEAN CORPUSCULAR HGB CONC 34 g/dl (33.0-37.0); MEAN PLATELET VOLUME 9.4 fl (7.4-10.4); MONO # 0.8 (0.1-0.6); MONO % 6.3 % (1.7-9.3); PLATELET COUNT 366 K/mm3 (130-400); RED BLOOD COUNT 5.21 M/mm3 (4.20-5.60)
[2018-10-19] MEDS ORDERED: LYRICA 100MG C100 M1 PO (07:59)
[2018-10-19 08:06] LABS: ALANINE AMINOTRANSFERASE 15 U/L (21-72); ALBUMIN 4.2 gm/dL (3.5-5.0); ALKALINE PHOSPHATASE 120 U/L (50-136); ANION GAP 5 mmol/L (7-16); AST,SGOT 17 U/L (15-37); BILIRUBIN,TOTAL 0.4 mg/dL (0.0-1.0); BLOOD UREA NITROGEN 16 mg/dL (9-20); C-REACTIVE PROTEIN 1.1 mg/dL (0.0-0.9); CALCIUM 9.2 mg/dL (8.4-10.2); CARBON DIOXIDE 28 mmol/L (22-30); CHLORIDE 105 mmol/L (98-107); CREATININE, serum 0.55 mg/dL (0.66-1.25); GLUCOSE 219 mg/dL (74-106); LIPASE 347 U/L (23-300); POTASSIUM 4.3 mmol/L (3.4-5.0); SODIUM 139 mmol/L (137-145); TOTAL PROTEIN 7.7 gm/dL (6.4-8.2)
[2018-10-19 08:10] LABS: ALCOHOL(ethanol),MEDICAL < 10 mg/dL
[2018-10-19 08:51] LABS: COLLECTION METHOD CLEAN CATCH
[2018-10-19 09:00] LABS: MUCOUS Present /lpf; PH 5 (5-8); SQUAMOUS EPITHELIAL None Seen /hpf; URINE APPEARANCE Clear; URINE BACTERIA None Seen /hpf; URINE BILIRUBIN Negative (NEGATIVE); URINE BLOOD Negative (NEGATIVE); URINE COLOR Yellow; URINE GLUCOSE 3+ (NEGATIVE); URINE KETONE Trace (NEGATIVE); URINE LEUKOCYTE ESTERASE Negative (NEGATIVE); URINE NITRATE Negative (NEGATIVE); URINE PROTEIN(semi-quant) Negative (NEGATIVE); URINE RBC 0-2 /hpf
[2018-10-19] MEDS ORDERED: AMOXICILLIN 8751 TAB PO (09:37)
[2018-10-19] MEDS ORDERED: PERCOCET 325 MG1 TAB PO (09:37)
[2018-10-19 09:56] VITALS: BP 120/81; PULSE 72
== END 2018-10-19 10:04 | disposition home or self-care (01) ==
LOC: COL.ER 07:08
PROVIDERS: Family Medicine
DX: K86.1 Other chronic pancreatitis (principal); L03.311 Cellulitis of abdominal wall; E11.9 Type 2 diabetes mellitus without complications; Z79.4 Long term (current) use of insulin
CPT/HCPCS: J1170; J2405; J7030; Q9967

== ENCOUNTER 2018-11-18 18:51 | Emergency (ER) | payer MEDICAID ==
[~2018-11-18] VITALS: Ht 182.9 cm; Wt 80.9 kg
[~2018-11-18 18:51] MED LIST changes: +AMOXICILLIN 8751 TAB PO; +LYRICA 100MG C100 M1 PO
[2018-11-18 18:55] VITALS: BP 131/76
[2018-11-18 19:38] LABS: BASO # 0.1 (0.0-0.2); BASO % 0.4 % (0.0-2.0); EOS # 0.3 (0.0-0.7); EOS % 2.1 % (0-4.0); GRAN # 12.5 (1.4-6.5); GRAN % 77.4 % (42.2-75.2); HEMOGLOBIN 14.4 g/dl (13.5-18.0); LYMPH # 2.3 (1.2-3.4); MEAN CELL VOLUME 92 fl (80.0-100.0); MEAN CORPUSCULAR HEMOGLOBIN 31 pg (27.0-31.0); MEAN CORPUSCULAR HGB CONC 34 g/dl (33.0-37.0); MEAN PLATELET VOLUME 9.4 fl (7.4-10.4); MONO # 0.9 (0.1-0.6); MONO % 5.5 % (1.7-9.3); PLATELET COUNT 317 K/mm3 (130-400); RED BLOOD COUNT 4.69 M/mm3 (4.20-5.60)
[2018-11-18 19:58] LABS: ALBUMIN 3.7 gm/dL (3.5-5.0); BILIRUBIN,TOTAL 0.4 mg/dL (0.0-1.0); CALCIUM 8.7 mg/dL (8.4-10.2); CREATININE, serum 0.51 mg/dL (0.66-1.25); TOTAL PROTEIN 6.9 gm/dL (6.4-8.2)
[2018-11-18 20:01] LABS: POTASSIUM 3.8 mmol/L (3.4-5.0)
[2018-11-18 20:20] LABS: COLLECTION METHOD CLEAN CATCH
[2018-11-18 20:46] LABS: MUCOUS Present /lpf; PH 6 (5-8); SQUAMOUS EPITHELIAL None Seen /hpf; URINE APPEARANCE Clear; URINE BACTERIA None Seen /hpf; URINE BILIRUBIN Negative (NEGATIVE); URINE BLOOD Negative (NEGATIVE); URINE COLOR Yellow; URINE GLUCOSE Negative (NEGATIVE); URINE KETONE Negative (NEGATIVE); URINE LEUKOCYTE ESTERASE Negative (NEGATIVE); URINE NITRATE Negative (NEGATIVE); URINE PROTEIN(semi-quant) Negative (NEGATIVE); URINE RBC 0-2 /hpf; URINE UROBILINOGEN Negative (NEGATIVE)
[2018-11-18] MEDS ORDERED: FLEXERIL 1010 MG/TAB PO (21:09)
[2018-11-18 21:17] VITALS: PULSE 67; TEMP 97.7
== END 2018-11-18 21:18 | disposition home or self-care (01) ==
LOC: COL.ER 18:51
PROVIDERS: Emergency Medicine
DX: G89.29 Other chronic pain (principal); R10.9 Unspecified abdominal pain; R20.0 Anesthesia of skin; I10 Essential (primary) hypertension; F17.210 Nicotine dependence, cigarettes, uncomplicated; E11.9 Type 2 diabetes mellitus without complications; Z79.4 Long term (current) use of insulin
CPT/HCPCS: J1885

== ENCOUNTER 2018-11-27 15:18 | Emergency (ER) | payer MEDICAID ==
[~2018-11-27] VITALS: Ht 182.9 cm; Wt 80.5 kg
[~2018-11-27 15:18] MED LIST changes: +FLEXERIL 1010 MG/TAB PO
[2018-11-27 15:24] VITALS: BP 149/88
[2018-11-27 15:59] LABS: COLLECTION METHOD CLEAN CATCH
[2018-11-27 16:02] LABS: BASO # 0.1 (0.0-0.2); BASO % 0.7 % (0.0-2.0); EOS # 0.2 (0.0-0.7); EOS % 2.4 % (0-4.0); GRAN # 6.2 (1.4-6.5); HEMATOCRIT 48.8 % (42.0-52.0); LYMPH # 2.3 (1.2-3.4); LYMPH % 23.7 % (20.0-51.0); MEAN CELL VOLUME 91 fl (80.0-100.0); MEAN CORPUSCULAR HEMOGLOBIN 30 pg (27.0-31.0); MEAN CORPUSCULAR HGB CONC 33 g/dl (33.0-37.0); MEAN PLATELET VOLUME 9.6 fl (7.4-10.4); MONO # 0.8 (0.1-0.6); MONO % 8.3 % (1.7-9.3); PLATELET COUNT 375 K/mm3 (130-400); RED BLOOD COUNT 5.34 M/mm3 (4.20-5.60); REDCELL DISTRIBUTION WIDTH-CV 12.9 % (11.5-14.5)
[2018-11-27 16:08] LABS: PH 6 (5-8); SQUAMOUS EPITHELIAL None Seen /hpf; URINE APPEARANCE Clear; URINE BACTERIA None Seen /hpf; URINE BILIRUBIN Negative (NEGATIVE); URINE BLOOD Negative (NEGATIVE); URINE COLOR Straw; URINE GLUCOSE 3+ (NEGATIVE); URINE KETONE Negative (NEGATIVE); URINE LEUKOCYTE ESTERASE Negative (NEGATIVE); URINE NITRATE Negative (NEGATIVE); URINE PROTEIN(semi-quant) Negative (NEGATIVE); URINE RBC None Seen /hpf; URINE UROBILINOGEN Negative (NEGATIVE)
[2018-11-27 16:12] LABS: ALBUMIN 4.3 gm/dL (3.5-5.0); BILIRUBIN,TOTAL 0.3 mg/dL (0.0-1.0); CALCIUM 9.6 mg/dL (8.4-10.2); CREATININE, serum 0.62 mg/dL (0.66-1.25)
[2018-11-27 17:50] VITALS: PULSE 83
== END 2018-11-27 17:50 | disposition home or self-care (01) ==
LOC: COL.ER 15:18
PROVIDERS: Family Medicine
DX: E11.65 Type 2 diabetes mellitus with hyperglycemia (principal); K86.1 Other chronic pancreatitis; Z79.4 Long term (current) use of insulin
CPT/HCPCS: J1815; J2270; J2405; J7030

== ENCOUNTER 2019-02-06 16:36 | Emergency (ER) | payer MEDICAID ==
[~2019-02-06] VITALS: Ht 182.9 cm; Wt 84.1 kg
[2019-02-06 16:42] VITALS: TEMP 97
[2019-02-06 17:05] LABS: COLLECTION METHOD CLEAN CATCH
[2019-02-06 17:09] LABS: BASO # 0.1 (0.0-0.2); BASO % 0.6 % (0.0-2.0); EOS # 0.4 (0.0-0.7); EOS % 3.1 % (0-4.0); GRAN # 7.6 (1.4-6.5); GRAN % 61.4 % (42.2-75.2); HEMATOCRIT 45.5 % (42.0-52.0); HEMOGLOBIN 15.5 g/dl (13.5-18.0); LYMPH # 3.3 (1.2-3.4); LYMPH % 26.9 % (20.0-51.0); MEAN CELL VOLUME 90 fl (80.0-100.0); MEAN CORPUSCULAR HEMOGLOBIN 31 pg (27.0-31.0); MEAN CORPUSCULAR HGB CONC 34 g/dl (33.0-37.0); MEAN PLATELET VOLUME 10.2 fl (7.4-10.4); MONO # 0.8 (0.1-0.6); MONO % 6.8 % (1.7-9.3); PLATELET COUNT 318 K/mm3 (130-400); RED BLOOD COUNT 5.08 M/mm3 (4.20-5.60); REDCELL DISTRIBUTION WIDTH-CV 12.4 % (11.5-14.5)
[2019-02-06 17:20] LABS: ALANINE AMINOTRANSFERASE 8 U/L (21-72); ALBUMIN 4.3 gm/dL (3.5-5.0); ALKALINE PHOSPHATASE 136 U/L (50-136); ANION GAP 11 mmol/L (7-16); AST,SGOT 15 U/L (15-37); BILIRUBIN,TOTAL 0.4 mg/dL (0.0-1.0); BLOOD UREA NITROGEN 15 mg/dL (9-20); CALCIUM 9.3 mg/dL (8.4-10.2); CARBON DIOXIDE 25 mmol/L (22-30); CHLORIDE 99 mmol/L (98-107); CREATININE, serum 0.72 (0.66-1.25); POTASSIUM 3.9 mmol/L (3.4-5.0); SODIUM 135 mmol/L (137-145)
[2019-02-06 17:23] LABS: PH 6 (5-8); SQUAMOUS EPITHELIAL None Seen /hpf; URINE APPEARANCE Clear; URINE BACTERIA None Seen /hpf; URINE BILIRUBIN Negative (NEGATIVE); URINE BLOOD Negative (NEGATIVE); URINE COLOR Yellow; URINE GLUCOSE 3+ (NEGATIVE); URINE KETONE Negative (NEGATIVE); URINE LEUKOCYTE ESTERASE Negative (NEGATIVE); URINE NITRATE Negative (NEGATIVE); URINE PROTEIN(semi-quant) Negative (NEGATIVE); URINE RBC 0-2 /hpf; URINE UROBILINOGEN Negative (NEGATIVE)
[2019-02-06 17:34] LABS: GLUCOSE 441 mg/dL (74-106)
[2019-02-06 17:35] LABS: ACETONE,SERUM NEGATIVE
[2019-02-06 17:36] LABS: ARTERIAL BLD GAS O2 SATURATION 94.8 % (92-100); ARTERIAL BLD GAS TCO2 CT 24.2; ARTERIAL BLOOD GAS BASE EXCESS -2.2 (-2-2); ARTERIAL BLOOD GAS PO2 74.8 mmHg (80-100); ARTERIAL BLOOD GAS pH 7.37 (7.35-7.45)
[2019-02-06] MEDS ORDERED: SEROQUEL50 MG (18:15)
[2019-02-06 19:38] VITALS: BP 123/87; PULSE 91
== END 2019-02-06 19:50 | disposition home or self-care (01) ==
LOC: COL.ER 16:36
PROVIDERS: Family Medicine
DX: K86.1 Other chronic pancreatitis (principal); E11.65 Type 2 diabetes mellitus with hyperglycemia; I10 Essential (primary) hypertension; E86.0 Dehydration; Z79.4 Long term (current) use of insulin
CPT/HCPCS: J1170; J1815; J2550; J7030

== ENCOUNTER 2019-02-27 15:54 | Emergency (ER) | payer MEDICAID ==
[2019-02-27] VITALS (252 sets, daily range): BP systolic 115; BP diastolic 86; PULSE 94; TEMP 98.3; O2SAT 94–100
[~2019-02-27] VITALS: Ht 182.9 cm; Wt 84.4 kg
[~2019-02-27 15:54] MED LIST changes: +SEROQUEL50 MG PO
[2019-02-27 16:50] LABS: BASO # 0.1 (0.0-0.2); BASO % 0.6 % (0.0-2.0); EOS # 0.2 (0.0-0.7); EOS % 1.8 % (0-4.0); GRAN # 7.1 (1.4-6.5); GRAN % 66.6 % (42.2-75.2); HEMATOCRIT 46.6 % (42.0-52.0); HEMOGLOBIN 15.5 g/dl (13.5-18.0); LYMPH # 2.8 (1.2-3.4); LYMPH % 25.9 % (20.0-51.0); MEAN CELL VOLUME 90 fl (80.0-100.0); MEAN CORPUSCULAR HEMOGLOBIN 30 pg (27.0-31.0); MEAN CORPUSCULAR HGB CONC 33 g/dl (33.0-37.0); MEAN PLATELET VOLUME 9.9 fl (7.4-10.4); MONO # 0.5 (0.1-0.6); MONO % 4.6 % (1.7-9.3); PLATELET COUNT 330 K/mm3 (130-400); RED BLOOD COUNT 5.17 M/mm3 (4.20-5.60); REDCELL DISTRIBUTION WIDTH-CV 12.5 % (11.5-14.5)
[2019-02-27 16:58] LABS: ALBUMIN 4.2 gm/dL (3.5-5.0); BILIRUBIN,TOTAL 0.4 mg/dL (0.0-1.0); CALCIUM 9.4 mg/dL (8.4-10.2); CREATININE, serum 0.73 (0.66-1.25); POTASSIUM 4.4 mmol/L (3.4-5.0); TOTAL PROTEIN 7.9 gm/dL (6.4-8.2)
[2019-02-27 18:13] LABS: COLLECTION METHOD CLEAN CATCH
[2019-02-27 18:24] LABS: MUCOUS Present /lpf; PH 6 (5-8); SQUAMOUS EPITHELIAL None Seen /hpf; URINE APPEARANCE Clear; URINE BACTERIA None Seen /hpf; URINE BILIRUBIN Negative (NEGATIVE); URINE BLOOD Negative (NEGATIVE); URINE COLOR Straw; URINE GLUCOSE 3+ (NEGATIVE); URINE KETONE Negative (NEGATIVE); URINE LEUKOCYTE ESTERASE Negative (NEGATIVE); URINE NITRATE Negative (NEGATIVE); URINE PROTEIN(semi-quant) Negative (NEGATIVE); URINE RBC 0-2 /hpf; URINE UROBILINOGEN Negative (NEGATIVE)
[2019-02-27] MEDS ORDERED: FLOMAX 0.40.4 MG/CAP PO (19:25)
[2019-02-27] MEDS ORDERED: AMOXICILLIN875 MG PO (19:27)
[2019-02-27] MEDS ORDERED: DAZIDOX20 MG PO (19:30)
[2019-02-27] MEDS ORDERED: FLEXERIL 1010 MG/TAB PO (19:32)
[2019-02-27] MEDS ORDERED: LOPRESSOR100 MG PO (19:52)
--- NOTE | 2019-02-27 22:32 | NUR ---
1931 - RECEIVED REPORT FROM LEYLA LUIS. 1949 - PT ARRIVED IN UNIT VIA WHEELCHAIR, ALERT AND ORIENTED X4. PT HAS CIGARATTES WITH BARRER AND TACKER KEPT AT ICU SAFETY CABINET. 2029 - PT HAS AMOXICILLIN THAT HE TAKES AT HOME, THIS RN ASKED PT IF HE COULD HAVE SOMEONE TO TAKE IT HERE [place], PT REFUSED AND VERBALIZED HE'S JUST GONNA TAKE IT AT HOME ONCE DISCHARGE DESPITE EDUCATIONG ON IMPORTANCE OF TAKING ANTIBIOTICS REGULARLY. 2229 - RACHEL WADDELL NOTIFIED [id number] ABOUT PT'S ANTIBIOTIC AND DVT PROPHYLAXIS. BAIRON WILL ORDER LOVENOX.
[2019-02-28] VITALS (872 sets, daily range): BP systolic 98–113; BP diastolic 61–81; PULSE 58–65; TEMP 97.5–98.5; O2SAT 72–100
--- NOTE | 2019-02-28 01:56 | NUR ---
0100 - pt's BP at 75/49, pt's arm flexed and at bedside table, rechecked and was 81/53. 0115 - BP at 85/58 0130 - BP at 78/48, Deisi WADDELL notified and ordered 1L of NS bolus. 0140 - BP at 100/70. will continue to monitor.
[2019-02-28 05:34] LABS: BASO % 0.4 % (0.0-2.0); EOS # 0.2 (0.0-0.7); EOS % 1.7 % (0-4.0); GRAN # 5.8 (1.4-6.5); GRAN % 61.8 % (42.2-75.2); HEMATOCRIT 39.9 % (42.0-52.0); LYMPH # 2.7 (1.2-3.4); LYMPH % 28.8 % (20.0-51.0); MEAN CELL VOLUME 93 fl (80.0-100.0); MEAN CORPUSCULAR HEMOGLOBIN 30 pg (27.0-31.0); MEAN CORPUSCULAR HGB CONC 32 g/dl (33.0-37.0); MEAN PLATELET VOLUME 9.8 fl (7.4-10.4); MONO # 0.6 (0.1-0.6); MONO % 6.7 % (1.7-9.3); PLATELET COUNT 262 K/mm3 (130-400); RED BLOOD COUNT 4.29 M/mm3 (4.20-5.60); REDCELL DISTRIBUTION WIDTH-CV 12.7 % (11.5-14.5)
[2019-02-28 05:40] LABS: HEMOGLOBIN 12.9 g/dl (13.5-18.0)
[2019-02-28 05:58] LABS: CREATININE, serum 0.51 (0.66-1.25); POTASSIUM 3.6 mmol/L (3.4-5.0)
--- NOTE | 2019-02-28 06:40 | NUR ---
BLOOD SUGAR RESULT FROM LAB DRAW THIS MORNING WAS 69. PT GIVEN SPRITE AND JELLO, RECHECK WAS 73. PT GIVEN APPLE JUICE AND WILL RE CHECK AGAIN IN 30 MINS.
--- NOTE | 2019-02-28 08:55 | NUR ---
SW met with patient about discharge planning. Patient lives independently at home with his girlfriend. Patient's PCP is Dr Mathis and he obtains prescriptions from [facility]. Patient does not use any DME or home health. Patient does not have a DPOA and he is not interested in completing one at this time. SW reported that patient will be scheduled with an appointment with diabetes education. Patient is agreeable to this. Patient will discharge home later today. SW does not anticipate any discharge needs.
--- NOTE | 2019-02-28 11:17 | NUR ---
First visit from the residence life director. No needs right now.
[2019-02-28] MEDS ORDERED: NOVOLOG FLEX100 U/ML SQ (13:55)
[2019-02-28] MEDS ORDERED: LOPRESSOR 550 MG/TAB PO (14:00)
== END 2019-02-28 15:15 | disposition home or self-care (01) ==
LOC: COL.ER 15:54 → ICU 18:10
PROVIDERS: Emergency Medicine; Nurse Practitioner Family; ADMIT Internal Medicine
DX: K86.1 Other chronic pancreatitis (principal); E11.65 Type 2 diabetes mellitus with hyperglycemia; K21.9 Gastro-esophageal reflux disease without esophagitis; F17.210 Nicotine dependence, cigarettes, uncomplicated; Z87.442 Personal history of urinary calculi; Z90.49 Acquired absence of other specified parts of digestive tract; Z79.4 Long term (current) use of insulin
CPT/HCPCS: G0378; J1170; J1200; J1650; J1815; J2405; J7030

== ENCOUNTER 2019-04-07 07:51 | Day surgery (SDC) | payer MEDICAID ==
[2019-04-07] VITALS (8 sets, daily range): BP systolic 99–128; BP diastolic 63–78; PULSE 55–65; TEMP 98.2
[~2019-04-07] VITALS: Ht 182.9 cm; Wt 82.9 kg
[~2019-04-07 07:51] MED LIST changes: +AMOXICILLIN875 MG PO; +DAZIDOX20 MG PO; +LOPRESSOR 550 MG/TAB PO; +NOVOLOG FLEX100 U/ML SQ
[2019-04-07 09:14] LABS: INR 0.9 (0.8-3.0); PROTHROMBIN TIME 10.3 SECONDS (9.7-12.8)
[2019-04-07 09:19] LABS: CALCIUM 8.9 mg/dL (8.4-10.2); CREATININE, serum 0.53 (0.66-1.25); POTASSIUM 4.3 mmol/L (3.4-5.0)
--- NOTE | 2019-04-07 09:26 | NUR ---
report from Rachna Montoya.
[2019-04-07 09:31] LABS: HEMATOCRIT 45.4 % (42.0-52.0); HEMOGLOBIN 14.8 g/dl (13.5-18.0); MEAN CELL VOLUME 92 fl (80.0-100.0); MEAN CORPUSCULAR HEMOGLOBIN 30 pg (27.0-31.0); MEAN CORPUSCULAR HGB CONC 33 g/dl (33.0-37.0); MEAN PLATELET VOLUME 10.4 fl (7.4-10.4); PLATELET COUNT 272 K/mm3 (130-400); RED BLOOD COUNT 4.92 M/mm3 (4.20-5.60)
--- NOTE | 2019-04-07 10:58 | NUR ---
ALL MEDICATIONS GIVEN VORB WITH MD. SEE MERGE FOR ALL MEDICATION ADMIN TIMES. SEE MERGE FOR ALL RASS ASSESSMENTS DURING AND POST PROCEDURE. NO ANTIBIOTICS PRE-OP OR IRRIGATION PER MD.
--- NOTE | 2019-04-07 13:15 | NUR ---
Report received from LEYLA Camejo.
--- NOTE | 2019-04-07 13:24 | NUR ---
Patient escorted out by this nurse.When this nurse asked if his friend wanted to go get the car,pt reports his ride is not here and he is going to go have a ciggarrette.Pt refuses to come back to room 9 until his ride arrives.Pt friend states"he isnt going to come back in." This nurse attempted to encourage pt to wait for ride in [place] until ride arrived without success.
== END 2019-04-07 13:27 | disposition home or self-care (01) ==
LOC: COL.CAR 07:51
PROVIDERS: Internal Medicine Interventional Cardiology
DX: Z45.09 Encounter for adjustment and management of other cardiac device (principal)
CPT/HCPCS: J2250; J3010; J7040; J7050

== ENCOUNTER 2019-05-03 19:51 | Observation (INO) | payer MEDICAID ==
[~2019-05-03] VITALS: Wt 83.5 kg
[2019-05-03 20:50] LABS: ACETONE,SERUM NEGATIVE
[2019-05-03 20:51] LABS: BASO # 0.1 (0.0-0.2); BASO % 0.5 % (0.0-2.0); EOS # 0.3 (0.0-0.7); EOS % 1.6 % (0-4.0); GRAN # 12.5 (1.4-6.5); GRAN % 70.3 % (42.2-75.2); HEMATOCRIT 47.9 % (42.0-52.0); HEMOGLOBIN 16.3 g/dl (13.5-18.0); LYMPH # 3.6 (1.2-3.4); LYMPH % 20.1 % (20.0-51.0); MEAN CELL VOLUME 89 fl (80.0-100.0); MEAN CORPUSCULAR HEMOGLOBIN 30 pg (27.0-31.0); MEAN CORPUSCULAR HGB CONC 34 g/dl (33.0-37.0); MEAN PLATELET VOLUME 10.2 fl (7.4-10.4); MONO # 1.2 (0.1-0.6); MONO % 6.5 % (1.7-9.3); PLATELET COUNT 281 K/mm3 (130-400); RED BLOOD COUNT 5.39 M/mm3 (4.20-5.60)
[2019-05-03 20:54] LABS: ALANINE AMINOTRANSFERASE < 6 U/L (21-72); ALBUMIN 4.3 gm/dL (3.5-5.0); ALKALINE PHOSPHATASE 104 U/L (50-136); ANION GAP 14 mmol/L (7-16); AST,SGOT 17 U/L (15-37); BILIRUBIN,TOTAL 0.4 mg/dL (0.0-1.0); BLOOD UREA NITROGEN 16 mg/dL (9-20); C-REACTIVE PROTEIN 1.7 mg/dL (0.0-0.9); CALCIUM 9.8 mg/dL (8.4-10.2); CARBON DIOXIDE 26 mmol/L (22-30); CHLORIDE 99 mmol/L (98-107); CREATINE KINASE 80 U/L (55-170); CREATININE, serum 1.28 (0.66-1.25); GLUCOSE 117 mg/dL (74-106); LIPASE 49 U/L (23-300); POTASSIUM 3.3 mmol/L (3.4-5.0); SODIUM 139 mmol/L (137-145); TOTAL PROTEIN 7.8 gm/dL (6.4-8.2)
[2019-05-03 21:03] LABS: TROPONIN-I < 0.012 ng/mL (0.000-0.035)
[2019-05-03 22:20] LABS: COLLECTION METHOD CLEAN CATCH
[2019-05-03 22:32] LABS: HYALINE CAST >12 /lpf; PH 5 (5-8); SQUAMOUS EPITHELIAL None Seen /hpf; URINE APPEARANCE Hazy; URINE BACTERIA None Seen /hpf; URINE BILIRUBIN Negative (NEGATIVE); URINE BLOOD Negative (NEGATIVE); URINE COLOR Yellow; URINE GLUCOSE 3+ (NEGATIVE); URINE KETONE Negative (NEGATIVE); URINE LEUKOCYTE ESTERASE Negative (NEGATIVE); URINE NITRATE Negative (NEGATIVE); URINE PROTEIN(semi-quant) 1+ (NEGATIVE); URINE RBC 0-2 /hpf; URINE UROBILINOGEN Negative (NEGATIVE)
[2019-05-04] MEDS ORDERED: PRINIVIL40 MG PO (02:43)
[2019-05-04] MEDS ORDERED: LEVEMIR100 U/ML SQ (02:44)
[2019-05-04] MEDS ORDERED: [UNRECOGNIZED DRUG - CODE] PO (02:47)
[2019-05-04 04:56] VITALS: BP 112/64; PULSE 92; TEMP 98.2
--- NOTE | 2019-05-04 05:31 | NUR ---
PT BROUGHT TO THE FLOOR PER CART FROM ER AROUND 0020. INITIAL ASSESSMENT COMPLETE. POTASSIUM AT 3.3. PT RECEIVEING 6-100ML/10MG POTASSIUM. HS MEDS GIVEN AND LOVENOX 40MG GIVEN SQ. HAS A WBC OF 17.7. NICOTENE PATCH TO UPPE LEFT BACK. AMBULATES TO BR WITH STEADY GAIT. NS INFUSING AT 150ML/HR. WILL CONTINUE TO MONITOR.
[2019-05-04 07:11] VITALS: BP 121/79; PULSE 92; TEMP 97.8
--- NOTE | 2019-05-04 07:20 | NUR ---
PT AMBULATES TO BR PUSHING HIS IV POLE. STEADY GAIT. FOURTH BAG OF POTASSIUM HUNG. REPORT GIVEN TO LEYLA SCHULTE.
[2019-05-04 07:26] LABS: BASO # 0.1 (0.0-0.2); BASO % 0.5 % (0.0-2.0); EOS # 0.3 (0.0-0.7); EOS % 2.3 % (0-4.0); GRAN # 7.2 (1.4-6.5); GRAN % 60.1 % (42.2-75.2); LYMPH # 3.7 (1.2-3.4); LYMPH % 31.2 % (20.0-51.0); MEAN CELL VOLUME 91 fl (80.0-100.0); MEAN CORPUSCULAR HEMOGLOBIN 30 pg (27.0-31.0); MEAN CORPUSCULAR HGB CONC 33 g/dl (33.0-37.0); MEAN PLATELET VOLUME 10.8 fl (7.4-10.4); MONO # 0.7 (0.1-0.6); MONO % 5.4 % (1.7-9.3); PLATELET COUNT 257 K/mm3 (130-400); RED BLOOD COUNT 4.84 M/mm3 (4.20-5.60); REDCELL DISTRIBUTION WIDTH-CV 13.2 % (11.5-14.5)
[2019-05-04 07:27] LABS: HEMOGLOBIN 14.3 g/dl (13.5-18.0)
[2019-05-04 07:36] LABS: CALCIUM 8.8 mg/dL (8.4-10.2); CREATININE, serum 0.58 (0.66-1.25); POTASSIUM 3.8 mmol/L (3.4-5.0)
--- NOTE | 2019-05-04 08:00 | NUR ---
Assessment complete. Pt sitting up in bed finishing breakfast, A&O x 4. Breath sounds CTAB. BS active x 4. Pt reports pain 9 out of 10 on pain scale to back and neck. IVF's infusing per orders through left AC site without s/s of complications. Saline lock IV to right forearm without s/s of complications. No further needs reported. Call light in reach.
--- NOTE | 2019-05-04 10:07 | NUR ---
SW attended clinical rounds. Patient will discharge home today. Patient lives independently at home. Patient reports his PCP is Dr Mathis and medications are obtained at [facility]. Patient is independent with ADLs. No discharge needs.
[2019-05-04 11:36] VITALS: BP 109/61; PULSE 86; TEMP 98.6
--- NOTE | 2019-05-04 12:30 | NUR ---
Discharge instructions reviewed with pt regarding change to medication and follow-up appointments. Pt verbalizes understanding, discharged home, ambulates out of facility accompanied by this nurse with ride from pt's friend.
== END 2019-05-04 13:00 | disposition home or self-care (01) ==
LOC: COL.ER 19:51 → MEDICAL 23:28
PROVIDERS: Emergency Medicine; Nurse Practitioner Family; ADMIT Student in an Organized Health Care Education/Training Program
DX: I95.9 Hypotension, unspecified (principal); K86.1 Other chronic pancreatitis; G89.29 Other chronic pain; R10.9 Unspecified abdominal pain; E11.9 Type 2 diabetes mellitus without complications; N40.0 Benign prostatic hyperplasia without lower urinary tract symptoms; F17.210 Nicotine dependence, cigarettes, uncomplicated; N17.9 Acute kidney failure, unspecified; D72.829 Elevated white blood cell count, unspecified; E87.2 Acidosis; G47.00 Insomnia, unspecified; Z90.49 Acquired absence of other specified parts of digestive tract; Z79.4 Long term (current) use of insulin; Z80.0 Family history of malignant neoplasm of digestive organs; Z83.3 Family history of diabetes mellitus
CPT/HCPCS: G0378; J1170; J1650; J1815; J2405; J3480; J7030

== ENCOUNTER → 2019-05-11 | Outpatient (CLI) | payer MEDICAID ==
[~2019-05-11] MED LIST changes: +LEVEMIR100 U/ML SQ
== END ==
LOC: COL.RAD 14:22
DX: M48.02 Spinal stenosis, cervical region (principal); M50.10 Cervical disc disorder with radiculopathy, unspecified cervical region

== ENCOUNTER 2019-06-24 10:38 | Inpatient (IN) | payer MEDICAID ==
[~2019-06-24] VITALS: Ht 182.9 cm; Wt 76.8 kg
[2019-06-24 11:10] LABS: BASO # 0.1 (0.0-0.2); BASO % 0.9 % (0.0-2.0); EOS # 0.1 (0.0-0.7); EOS % 0.4 % (0-4.0); GRAN # 10.5 (1.4-6.5); GRAN % 78.3 % (42.2-75.2); HEMATOCRIT 47.7 % (42.0-52.0); HEMOGLOBIN 16.5 g/dl (13.5-18.0); LYMPH # 1.8 (1.2-3.4); LYMPH % 13.7 % (20.0-51.0); MEAN CELL VOLUME 87 fl (80.0-100.0); MEAN CORPUSCULAR HEMOGLOBIN 30 pg (27.0-31.0); MEAN CORPUSCULAR HGB CONC 35 g/dl (33.0-37.0); MEAN PLATELET VOLUME 9.4 fl (7.4-10.4); MONO # 0.8 (0.1-0.6); MONO % 6.3 % (1.7-9.3); PLATELET COUNT 307 K/mm3 (130-400); RED BLOOD COUNT 5.48 M/mm3 (4.20-5.60); REDCELL DISTRIBUTION WIDTH-CV 13.4 % (11.5-14.5)
[2019-06-24 11:19] LABS: INR 0.9 (0.8-3.0); PROTHROMBIN TIME 10.7 SECONDS (9.7-12.8)
[2019-06-24 11:21] LABS: PARTIAL THROMBOPLASTIN TIME 31.7 SECONDS (26.0-37.0)
[2019-06-24 11:25] LABS: ALANINE AMINOTRANSFERASE 24 U/L (21-72); ALBUMIN 4.6 gm/dL (3.5-5.0); ALKALINE PHOSPHATASE 158 U/L (50-136); ANION GAP 17 mmol/L (7-16); AST,SGOT 39 U/L (15-37); BILIRUBIN,TOTAL 0.7 mg/dL (0.0-1.0); BLOOD UREA NITROGEN 10 mg/dL (9-20); CALCIUM 9.1 mg/dL (8.4-10.2); CARBON DIOXIDE 22 mmol/L (22-30); CHLORIDE 102 mmol/L (98-107); GLUCOSE 238 mg/dL (74-106); LIPASE 416 U/L (23-300); POTASSIUM 4.2 mmol/L (3.4-5.0); SODIUM 141 mmol/L (137-145); TOTAL PROTEIN 8.3 gm/dL (6.4-8.2)
[2019-06-24 11:38] LABS: TROPONIN-I < 0.012 ng/mL (0.000-0.035)
[2019-06-24 11:50] LABS: MAGNESIUM 2.1 mg/dL (1.6-2.3)
[2019-06-24 12:14] LABS: COLLECTION METHOD CLEAN CATCH
[2019-06-24 12:48] LABS: MUCOUS Present /lpf; PH 5 (5-8); SQUAMOUS EPITHELIAL 0-2 /hpf; URINE APPEARANCE Clear; URINE BACTERIA Rare /hpf; URINE BILIRUBIN Negative (NEGATIVE); URINE BLOOD 1+ (NEGATIVE); URINE COLOR Yellow; URINE GLUCOSE 3+ (NEGATIVE); URINE KETONE 2+ (NEGATIVE); URINE LEUKOCYTE ESTERASE Negative (NEGATIVE); URINE NITRATE Negative (NEGATIVE); URINE PROTEIN(semi-quant) 2+ (NEGATIVE); URINE RBC 0-2 /hpf; URINE UROBILINOGEN Negative (NEGATIVE)
[2019-06-24] MEDS ORDERED: LEVEMIR100 U/ML SQ (14:41)
[2019-06-24] MEDS ORDERED: TOPROL XL100 MG PO ×2 (14:42→14:43)
--- NOTE | 2019-06-24 14:53 | NUR ---
PT TRANSFERED FROM ER AND RESTING IN BED. PT C/O PAIN 07/27 AND ASKED FOR PAIN MED. PT ORIENTED TO RM, BED BUTTON, CALL LIGHT AND RM SERVICE. CALL LIGHT IN REACH.
[2019-06-24 15:24] VITALS: BP 128/75; PULSE 67; TEMP 97.5
--- NOTE | 2019-06-24 16:25 | NUR ---
PT STILL C/O 10/ PAIN AND AGITATED. PT REVEIWED HIS PAIN MED AND WHAT OPTIONS HE HAS FOR PAIN CONTROL. CALL LIGHT IN REACH.
[2019-06-24 18:13] VITALS: BP 128/75; PULSE 67; TEMP 97.5
--- NOTE | 2019-06-24 18:33 | NUR ---
HE THREW UP HIS PO MEDS INCLUDING OXYCODONE. PT REFUSED TO TAKE ANY PO MEDS, SO IV DILAUDID GIVEN. PT STILL C/O 10/ PAIN AND AGITATED. CALL LIGHT IN REACH.
--- NOTE | 2019-06-24 18:56 | NUR ---
REPORT GIVEN TO LEYLA TSE. PT NOW SLEEPING IN BED SOUNDLY. CALL LIGHT IN REACH. BED ALARM ON.
[2019-06-24 21:00] VITALS: BP 139/91; PULSE 85; TEMP 98.2
--- NOTE | 2019-06-24 21:00 | NUR ---
Initial shift assessment done- has been sleeping for the past couple of hours- Awake now, states abd pain 07/27, will get some Dilaudid as ordered, also would like a popsicle,states that helped "cool his stomach"- detox protocol done - scored a 4, and Ativan 0.5mg will be given as ordered, IV fluids of NS AT 125CC/HR, Tele on-
[2019-06-24 21:55] VITALS: BP 148/91; PULSE 83; TEMP 97.6
--- NOTE | 2019-06-24 23:30 | NUR ---
Has been resting good tonight between pain meds-- states abd pain 05/27 - will give Dilaudid at this time- has been able to keep down oral night meds tonight- drinking some water and eating popsicles-- Up to bathroom with assist- voiding dark debbie urine. Detox score remains 4
[2019-06-24 23:31] VITALS: BP 146/86; PULSE 72
[2019-06-25] VITALS (9 sets, daily range): BP systolic 117–143; BP diastolic 75–88; PULSE 53–75; TEMP 97.8–98.2
--- NOTE | 2019-06-25 03:00 | NUR ---
States abd pain 05/27- will give Dilaudid IV as ordered, detox protocol score 2 at this time- pt sleeping well, no tremors, VSS- pt calm
--- NOTE | 2019-06-25 06:37 | NUR ---
Has been sleeping well most of the night- detox protocol 2-3 this morning- Ativan not given since MN,, did get Dilaudid for abd pain x3 during the shift- eating posicles without nausea
[2019-06-25 08:13] LABS: BASO % 0.3 % (0.0-2.0); EOS # 0.1 (0.0-0.7); GRAN # 6.7 (1.4-6.5); GRAN % 76.5 % (42.2-75.2); HEMATOCRIT 42.8 % (42.0-52.0); LYMPH # 1.3 (1.2-3.4); LYMPH % 14.4 % (20.0-51.0); MEAN CORPUSCULAR HGB CONC 32 g/dl (33.0-37.0); MEAN PLATELET VOLUME 9.9 fl (7.4-10.4); MONO # 0.6 (0.1-0.6); MONO % 7.3 % (1.7-9.3); PLATELET COUNT 223 K/mm3 (130-400); RED BLOOD COUNT 4.63 M/mm3 (4.20-5.60); REDCELL DISTRIBUTION WIDTH-CV 13.7 % (11.5-14.5)
[2019-06-25 08:17] LABS: HEMOGLOBIN 13.8 g/dl (13.5-18.0); MEAN CELL VOLUME 92 fl (80.0-100.0); MEAN CORPUSCULAR HEMOGLOBIN 30 pg (27.0-31.0)
[2019-06-25 08:18] LABS: CALCIUM 8.2 mg/dL (8.4-10.2); CREATININE, serum 0.41 (0.66-1.25); POTASSIUM 4.4 mmol/L (3.4-5.0)
--- NOTE | 2019-06-25 09:20 | NUR ---
Pt assessment complete. Pt is sleeping in bed upon entry, very drowsy arouses to voice but falls asleep quickly. Pt wakes up enough to say he's having pain 9/10 but unable to fully state his birthdate before falling asleep. Plan to give less pain meds due to drowsiness discussed with patient who verbalizes understanding. Popsicle given, pt denies nausea at this time. IVF infusing without complications. No needs at this time. Bed alarm in place. Will continue to monitor.
--- NOTE | 2019-06-25 12:12 | NUR ---
Pt much more alert and conversive. Having appropriate conversationg. Pt rates abdominal pain 10/10, PRN pain medication administered. POC discussed with patient as well as NPO orders. Call light within reach.
--- NOTE | 2019-06-25 14:40 | NUR ---
Patient lives alone in his [place], [place] apartment and plans to return home upon recovery if possible. Patient is disabled and uses a cane for mobility assistance, his pharmacy is [facility], his primary care physician is Dr. Joel Mathis, and he does not have advance directives for healthcare completed at this time. Patient reports that he has drank approximately 2 pints of whiskey per day for the last few days and denies history of alcohol withdrawl in the past. Patient has a sister (Claribel Whitfield phone: [phone]) who lives in a local trailer and is supportive of the patient as needed. director of employer services will follow as needed.
--- NOTE | 2019-06-25 19:21 | NUR ---
Pt much more alert through the afternoon. Continued to rest quietly and calmly in bed but report pain 9/10 or 10/10, does not appear distressed. Pt reports that he threw up his popsicle this am. Patient's bed alarm in place and patient unable to ambulate independently but no visualization of emesis. Pt made NPO d/t continued pain and nausea, pt aware of this. D5NS started d/t patient being NPO and blood sugars decreasing. Pt sitting up in bed on phone at this time, call light within reach. Bed alarm in place.
--- NOTE | 2019-06-25 21:30 | NUR ---
Shift assessment complete. Patient in bed, awake. States 8/10 pain, "where my pancreas is at." Prn pain medication per pt request. CIWA score 2, no ativan needed. Patient c/o he is hungry and wants to try clear liquids again. VIDA Lipscomb notified, clear liquid diet ordered. Patient tolerated po meds, 4 popsicles, and water. Denies further needs at this time. Will continue to monitor.
[2019-06-26] VITALS (11 sets, daily range): BP systolic 112–167; BP diastolic 51–97; PULSE 51–66; TEMP 97.5–98.9
--- NOTE | 2019-06-26 04:20 | NUR ---
Patient in bed, awake. States 8/10 pain. Prn pain medication given. CIWA score 1, no ativan required. VS stable. Patient attempting to drink beef broth. Denies further needs at this time. Will continue to monitor.
--- NOTE | 2019-06-26 05:44 | NUR ---
Patient called for pain meds, and upon entering the room to tell patient he was unable to have the IV pain medication, it was noted that he was sleeping. He appears comfortable, and is snoring. When he calls for pain meds, we will offer the oral pain medication since he has been tolerting his diet. Will continue to monitor.
[2019-06-26 06:17] LABS: BASO % 0.3 % (0.0-2.0); EOS # 0.1 (0.0-0.7); EOS % 1.4 % (0-4.0); GRAN # 7.5 (1.4-6.5); GRAN % 76.1 % (42.2-75.2); HEMATOCRIT 41.9 % (42.0-52.0); HEMOGLOBIN 13.6 g/dl (13.5-18.0); LYMPH # 1.7 (1.2-3.4); LYMPH % 17.5 % (20.0-51.0); MEAN CELL VOLUME 92 fl (80.0-100.0); MEAN CORPUSCULAR HEMOGLOBIN 30 pg (27.0-31.0); MEAN CORPUSCULAR HGB CONC 33 g/dl (33.0-37.0); MEAN PLATELET VOLUME 10.2 fl (7.4-10.4); MONO # 0.4 (0.1-0.6); MONO % 4.4 % (1.7-9.3); PLATELET COUNT 190 K/mm3 (130-400); RED BLOOD COUNT 4.55 M/mm3 (4.20-5.60); REDCELL DISTRIBUTION WIDTH-CV 13.5 % (11.5-14.5)
[2019-06-26 06:28] LABS: CALCIUM 8.2 mg/dL (8.4-10.2); CREATININE, serum 0.39 (0.66-1.25); POTASSIUM 3.3 mmol/L (3.4-5.0)
--- NOTE | 2019-06-26 09:00 | NUR ---
Patient A&Ox3, reporting pain in "pancrease area and abdomen" requested pain medication. VSS. IV CDI, fluids infusing. Patient on ETOH protocol. Patient aware to call nursing staff for assistance with ambulation. No further needs expressed from patient. Call light within reach. Bed alarm on
--- NOTE | 2019-06-26 11:21 | NUR ---
Initial visit; Patient thanked Harness Worker for looking in on him and states he has what he needs at this time.
--- NOTE | 2019-06-26 18:12 | NUR ---
Patient sitting up in bed. A&Ox3, reporting pain 9/10 in abdomen not relieved by pain medication. Doctor is aware. VSS. IV CDI. On ETOH protocol and not scoring. On clear liquid diet and tolerating well. WBG liable throughout shift, will continue to monitor. No further needs expressed from patient. Call light within reach
[2019-06-27] VITALS (7 sets, daily range): BP systolic 120–164; BP diastolic 80–112; PULSE 58–65; TEMP 97.8–99.7
--- NOTE | 2019-06-27 07:45 | NUR ---
Pt had a fairly good night. Went about 7-8 hours without pain med as he slept thru this time. Call light with in reach. IV fluids continue to infuse without difficulty. Took dressing over IV site off early this shift as cath was most of the way out. Reinserted and secured IV cath in place. Flushes well. Voids clear, yellow urine per urinal.
--- NOTE | 2019-06-27 08:30 | NUR ---
Pt assessment complete. Pt is sitting up in bed he is alert and oriented. Pt reports pain 10/10, requesting "IV Dilaudid", reporting he takes 20mg of Roxicodone at home and he is not getting enough here. Pt also reports nausea. Continues to eat and drink clear liquids, pt advised to decrease intake if continuing to have pain. Pt not receptive to what the nurse has to say. IVF infusing without complications. No other needs at this time. Call light within reach.
[2019-06-27 08:57] LABS: CALCIUM 8.1 mg/dL (8.4-10.2); CREATININE, serum 0.4 (0.66-1.25); POTASSIUM 3.5 mmol/L (3.4-5.0)
--- NOTE | 2019-06-27 15:15 | NUR ---
SETH's met with the patient to review discharge plan and to discuss the patient's alcohol use and treatment options. The patient reports that he is not interested in any treatment or resources for alcohol. He states that he quit on his own in the past and he can do it again. The patient plans to return home with his girlfriend upon discharge. He states that his sister will provide transportation. No additional needs at this time.
[2019-06-27] MEDS ORDERED: FLOMAX 0.40.4 MG/CAP PO (16:36)
[2019-06-27] MEDS ORDERED: INDOCIN 25MG CA25 MG PO (16:37)
[2019-06-27] MEDS ORDERED: FLEXERIL 1010 MG/TAB PO (16:37)
[2019-06-27] MEDS ORDERED: MULTI VITAMINS1 TAB PO (16:38)
[2019-06-27] MEDS ORDERED: SENOKOT S 50 MG1 TAB PO (16:38)
[2019-06-27] MEDS ORDERED: THIAMINE 1100 MG/TAB PO (16:38)
[2019-06-27] MEDS ORDERED: FOLIC ACID 11 MG/TA1 PO (16:38)
--- NOTE | 2019-06-27 17:43 | NUR ---
Discharge paperwork and instructions reviewed with patient. IV to LAC dc'd, catheter tip intact. Pt walked out of facility at this time.
== END 2019-06-27 17:44 | disposition home or self-care (01) | DRG 440 ==
LOC: COL.ER 10:38 → MEDICAL 13:36
PROVIDERS: Emergency Medicine; Nurse Practitioner Family; ADMIT Hospitalist
PROC: HZ2ZZZZ Detoxification Services for Substance Abuse Treatment (ICD-10-PCS; principal; 2019-06-25)
DX: K85.20 Alcohol induced acute pancreatitis without necrosis or infection (principal); F10.20 Alcohol dependence, uncomplicated; K86.1 Other chronic pancreatitis; E11.42 Type 2 diabetes mellitus with diabetic polyneuropathy; F32.9 Major depressive disorder, single episode, unspecified; K21.9 Gastro-esophageal reflux disease without esophagitis; N40.0 Benign prostatic hyperplasia without lower urinary tract symptoms; F17.210 Nicotine dependence, cigarettes, uncomplicated; G89.29 Other chronic pain; Y90.5 Blood alcohol level of 100-119 mg/100 ml; E87.6 Hypokalemia; G47.00 Insomnia, unspecified; Z79.891 Long term (current) use of opiate analgesic; Z79.4 Long term (current) use of insulin
CPT/HCPCS: 99231-AI; 99233-AI; 99239; C9113; G0378; J1170; J1650; J1815; J2060; J2405; J3010; J3411; J3475; J7030; J7042; Q9967

== ENCOUNTER 2019-10-08 19:47 | Emergency (ER) | payer MEDICAID ==
[~2019-10-08] VITALS: Ht 182.9 cm; Wt 93.2 kg
[~2019-10-08 19:47] MED LIST changes: +INDOCIN 25MG CA25 MG PO; +MULTI VITAMINS1 TAB PO
[2019-10-08 19:59] VITALS: TEMP 97.6
[2019-10-08 20:51] LABS: BASO # 0.1 (0.0-0.2); BASO % 0.5 % (0.0-2.0); EOS # 0.4 (0.0-0.7); EOS % 2.9 % (0-4.0); GRAN % 67.3 % (42.2-75.2); HEMATOCRIT 48.1 % (42.0-52.0); HEMOGLOBIN 15.8 g/dl (13.5-18.0); LYMPH # 3.1 (1.2-3.4); LYMPH % 23.3 % (20.0-51.0); MEAN CELL VOLUME 90 fl (80.0-100.0); MEAN CORPUSCULAR HEMOGLOBIN 30 pg (27.0-31.0); MEAN CORPUSCULAR HGB CONC 33 g/dl (33.0-37.0); MEAN PLATELET VOLUME 10.1 fl (7.4-10.4); MONO # 0.7 (0.1-0.6); MONO % 5.4 % (1.7-9.3); PLATELET COUNT 282 K/mm3 (130-400); RED BLOOD COUNT 5.33 M/mm3 (4.20-5.60); REDCELL DISTRIBUTION WIDTH-CV 13.9 % (11.5-14.5)
[2019-10-08] MEDS ORDERED: ZANAFLEX CAPSULE4 MG PO (21:04)
[2019-10-08] MEDS ORDERED: LOPRESSOR100 MG PO (21:06)
[2019-10-08] MEDS ORDERED: ROXICODONE 55 MG/TAB (21:07)
[2019-10-08] MEDS ORDERED: ZOLOFT 100MG100 MG PO (21:08)
[2019-10-08 21:48] LABS: ALBUMIN 3.9 gm/dL (3.5-5.0); BILIRUBIN,TOTAL 0.2 mg/dL (0.0-1.0); CALCIUM 8.4 mg/dL (8.4-10.2); CREATININE, serum 0.53 (0.66-1.25); POTASSIUM 3.6 mmol/L (3.4-5.0); TOTAL PROTEIN 7.1 gm/dL (6.4-8.2)
[2019-10-08] MEDS ORDERED: DILAUDID8 M1 PO (22:37)
[2019-10-08] MEDS ORDERED: PHENERGAN 25 TA25 MG PO (22:37)
[2019-10-08 22:51] VITALS: BP 150/103; PULSE 81
== END 2019-10-08 22:51 | disposition home or self-care (01) ==
LOC: COL.ER 19:47
PROVIDERS: Emergency Medicine
DX: M54.12 Radiculopathy, cervical region (principal); K86.1 Other chronic pancreatitis; G89.29 Other chronic pain; F11.23 Opioid dependence with withdrawal; Z79.4 Long term (current) use of insulin
CPT/HCPCS: J1170; J1885; J7030

== ENCOUNTER 2019-10-31 19:25 | Emergency (ER) | payer MEDICAID ==
[~2019-10-31] VITALS: Ht 182.9 cm; Wt 93.2 kg
[~2019-10-31 19:25] MED LIST changes: +DILAUDID8 M1 PO; +ROXICODONE 55 MG/TAB; +ZANAFLEX CAPSULE4 MG PO
[2019-10-31 19:28] VITALS: BP 180/97; TEMP 98.4
[2019-10-31] MEDS ORDERED: LOPRESSOR100 MG PO (19:45)
[2019-10-31] MEDS ORDERED: TOPROL XL100 MG PO (19:45)
[2019-10-31] MEDS ORDERED: MULTI VITAMINS1 TAB PO (19:47)
[2019-10-31] MEDS ORDERED: [UNRECOGNIZED DRUG - CODE] PO (19:49)
[2019-10-31] MEDS ORDERED: SEROQUEL50 MG PO (19:50)
[2019-10-31 19:55] LABS: COLLECTION METHOD CLEAN CATCH
[2019-10-31 20:04] LABS: PH 7 (5-8); SQUAMOUS EPITHELIAL None Seen /hpf; URINE APPEARANCE Clear; URINE BACTERIA None Seen /hpf; URINE BILIRUBIN Negative (NEGATIVE); URINE BLOOD Negative (NEGATIVE); URINE COLOR Yellow; URINE GLUCOSE 3+ (NEGATIVE); URINE KETONE Negative (NEGATIVE); URINE LEUKOCYTE ESTERASE Negative (NEGATIVE); URINE NITRATE Negative (NEGATIVE); URINE PROTEIN(semi-quant) Negative (NEGATIVE); URINE RBC 0-2 /hpf; URINE UROBILINOGEN Negative (NEGATIVE)
[2019-10-31 21:14] LABS: BASO % 0.3 % (0.0-2.0); EOS # 0.2 (0.0-0.7); EOS % 1.7 % (0-4.0); GRAN # 10.4 (1.4-6.5); GRAN % 74.6 % (42.2-75.2); HEMOGLOBIN 15.2 g/dl (13.5-18.0); LYMPH # 2.5 (1.2-3.4); LYMPH % 17.8 % (20.0-51.0); MEAN CELL VOLUME 90 fl (80.0-100.0); MEAN CORPUSCULAR HEMOGLOBIN 30 pg (27.0-31.0); MEAN CORPUSCULAR HGB CONC 33 g/dl (33.0-37.0); MEAN PLATELET VOLUME 10.4 fl (7.4-10.4); MONO # 0.7 (0.1-0.6); PLATELET COUNT 287 K/mm3 (130-400); RED BLOOD COUNT 5.11 M/mm3 (4.20-5.60); REDCELL DISTRIBUTION WIDTH-CV 13.8 % (11.5-14.5)
[2019-10-31 21:17] LABS: ALBUMIN 4.1 gm/dL (3.5-5.0); BILIRUBIN,TOTAL 0.4 mg/dL (0.0-1.0); C-REACTIVE PROTEIN 2.2 mg/dL (0.0-0.9); CALCIUM 9.1 mg/dL (8.4-10.2); CREATININE, serum 0.59 (0.66-1.25); POTASSIUM 4.1 mmol/L (3.4-5.0); TOTAL PROTEIN 7.6 gm/dL (6.4-8.2)
[2019-10-31 23:26] VITALS: PULSE 68
== END 2019-10-31 23:26 | disposition home or self-care (01) ==
LOC: COL.ER 19:25
PROVIDERS: Family Medicine
DX: K85.90 Acute pancreatitis without necrosis or infection, unspecified (principal); E11.40 Type 2 diabetes mellitus with diabetic neuropathy, unspecified; K21.9 Gastro-esophageal reflux disease without esophagitis; F17.210 Nicotine dependence, cigarettes, uncomplicated; F10.229 Alcohol dependence with intoxication, unspecified; Z79.4 Long term (current) use of insulin
CPT/HCPCS: J1170; J2405; J7030; Q9967

== ENCOUNTER 2020-01-16 09:16 | Emergency (ER) | payer MEDICAID ==
[~2020-01-16] VITALS: Ht 182.9 cm; Wt 95.5 kg
[2020-01-16 09:34] VITALS: TEMP 98.2
[2020-01-16 09:52] LABS: BASO # 0.1 (0.0-0.2); BASO % 0.6 % (0.0-2.0); EOS # 0.2 (0.0-0.7); EOS % 1.6 % (0-4.0); GRAN # 7.5 (1.4-6.5); GRAN % 67.8 % (42.2-75.2); HEMATOCRIT 48.2 % (42.0-52.0); HEMOGLOBIN 16.6 g/dl (13.5-18.0); LYMPH # 2.5 (1.2-3.4); LYMPH % 22.7 % (20.0-51.0); MEAN CELL VOLUME 87 fl (80.0-100.0); MEAN CORPUSCULAR HEMOGLOBIN 30 pg (27.0-31.0); MEAN CORPUSCULAR HGB CONC 34 g/dl (33.0-37.0); MONO # 0.8 (0.1-0.6); MONO % 6.9 % (1.7-9.3); PLATELET COUNT 197 K/mm3 (130-400); RED BLOOD COUNT 5.55 M/mm3 (4.20-5.60); REDCELL DISTRIBUTION WIDTH-CV 13.1 % (11.5-14.5)
[2020-01-16 10:08] LABS: ALANINE AMINOTRANSFERASE 18 U/L (4-49); ALBUMIN 4.7 gm/dL (3.5-5.0); ALKALINE PHOSPHATASE 161 U/L (50-136); ANION GAP 22 mmol/L (7-16); AST,SGOT 29 U/L (15-37); BLOOD UREA NITROGEN 10 mg/dL (9-20); C-REACTIVE PROTEIN 1.1 mg/dL (0.0-0.9); CALCIUM 9.3 mg/dL (8.4-10.2); CARBON DIOXIDE 18 mmol/L (22-30); CHLORIDE 96 mmol/L (98-107); CREATININE, serum 0.54 (0.66-1.25); GLUCOSE 288 mg/dL (74-106); LIPASE 117 U/L (23-300); POTASSIUM 4.3 mmol/L (3.4-5.0); SODIUM 136 mmol/L (137-145); TOTAL PROTEIN 8.3 gm/dL (6.4-8.2)
[2020-01-16 10:11] LABS: ALCOHOL(ethanol),MEDICAL < 10 mg/dL
[2020-01-16 10:17] LABS: TROPONIN-I < 0.012 ng/mL (0.000-0.035)
[2020-01-16 10:30] LABS: COLLECTION METHOD CLEAN CATCH
[2020-01-16 10:36] LABS: MUCOUS Present /lpf; PH 5 (5-8); SQUAMOUS EPITHELIAL 0-2 /hpf; URINE APPEARANCE Clear; URINE BACTERIA None Seen /hpf; URINE BILIRUBIN Negative (NEGATIVE); URINE BLOOD 1+ (NEGATIVE); URINE COLOR Yellow; URINE GLUCOSE 3+ (NEGATIVE); URINE KETONE 2+ (NEGATIVE); URINE LEUKOCYTE ESTERASE Negative (NEGATIVE); URINE NITRATE Negative (NEGATIVE); URINE PROTEIN(semi-quant) 1+ (NEGATIVE); URINE RBC 0-2 /hpf; URINE UROBILINOGEN Negative (NEGATIVE)
[2020-01-16 12:48] VITALS: BP 165/107; PULSE 100
== END 2020-01-16 12:51 | disposition home or self-care (01) ==
LOC: COL.ER 09:16
PROVIDERS: Physician Assistant
DX: R10.12 Left upper quadrant pain (principal); E11.9 Type 2 diabetes mellitus without complications; K21.9 Gastro-esophageal reflux disease without esophagitis; F32.9 Major depressive disorder, single episode, unspecified; F17.210 Nicotine dependence, cigarettes, uncomplicated; Z79.4 Long term (current) use of insulin
CPT/HCPCS: J1170; J2060; J2405; J7030

== ENCOUNTER 2020-02-07 09:24 | Emergency (ER) | payer MEDICAID ==
[~2020-02-07] VITALS: Ht 182.9 cm; Wt 93.2 kg
[2020-02-07 09:41] LABS: BASO # 0.1 (0.0-0.2); BASO % 0.6 % (0.0-2.0); EOS # 0.1 (0.0-0.7); EOS % 0.8 % (0-4.0); GRAN # 8.2 (1.4-6.5); GRAN % 76.1 % (42.2-75.2); HEMATOCRIT 47.9 % (42.0-52.0); HEMOGLOBIN 16.3 g/dl (13.5-18.0); LYMPH # 1.7 (1.2-3.4); LYMPH % 16.2 % (20.0-51.0); MEAN CELL VOLUME 89 fl (80.0-100.0); MEAN CORPUSCULAR HEMOGLOBIN 30 pg (27.0-31.0); MEAN CORPUSCULAR HGB CONC 34 g/dl (33.0-37.0); MEAN PLATELET VOLUME 9.8 fl (7.4-10.4); MONO # 0.6 (0.1-0.6); MONO % 5.6 % (1.7-9.3); PLATELET COUNT 291 K/mm3 (130-400); RED BLOOD COUNT 5.39 M/mm3 (4.20-5.60); REDCELL DISTRIBUTION WIDTH-CV 13.8 % (11.5-14.5)
[2020-02-07 09:51] LABS: ALANINE AMINOTRANSFERASE 18 U/L (4-49); ALBUMIN 4.6 gm/dL (3.5-5.0); ALCOHOL(ethanol),MEDICAL 16 mg/dL; ALKALINE PHOSPHATASE 151 U/L (50-136); ANION GAP 18 mmol/L (7-16); AST,SGOT 18 U/L (15-37); BILIRUBIN,TOTAL 0.8 mg/dL (0.0-1.0); BLOOD UREA NITROGEN 10 mg/dL (9-20); CALCIUM 9.5 mg/dL (8.4-10.2); CARBON DIOXIDE 18 mmol/L (22-30); CHLORIDE 101 mmol/L (98-107); CREATININE, serum 0.55 (0.66-1.25); GLUCOSE 289 mg/dL (74-106); LIPASE 404 U/L (23-300); POTASSIUM 4.4 mmol/L (3.4-5.0); SODIUM 137 mmol/L (137-145)
[2020-02-07 10:00] LABS: COLLECTION METHOD CLEAN CATCH
[2020-02-07 10:03] LABS: TROPONIN-I < 0.012 ng/mL (0.000-0.035)
[2020-02-07 10:23] LABS: HYALINE CAST >12 /lpf; MUCOUS Present /lpf; PH 5 (5-8); SQUAMOUS EPITHELIAL 0-2 /hpf; URINE APPEARANCE Clear; URINE BACTERIA None Seen /hpf; URINE BILIRUBIN Negative (NEGATIVE); URINE BLOOD Negative (NEGATIVE); URINE COLOR Yellow; URINE GLUCOSE 3+ (NEGATIVE); URINE KETONE 2+ (NEGATIVE); URINE LEUKOCYTE ESTERASE Negative (NEGATIVE); URINE NITRATE Negative (NEGATIVE); URINE PROTEIN(semi-quant) 1+ (NEGATIVE); URINE RBC 0-2 /hpf; URINE UROBILINOGEN Negative (NEGATIVE)
[2020-02-07 13:19] VITALS: BP 147/96; PULSE 99; TEMP 97.4
[2020-02-09] MEDS ORDERED: FLEXERIL5 MG (20:28)
[2020-02-09] MEDS ORDERED: NOVOLOG FLEX100 U/ML IJ (20:29)
== END 2020-02-07 13:26 | disposition home or self-care (01) ==
LOC: COL.ER 09:24
PROVIDERS: Physician Assistant
DX: K85.90 Acute pancreatitis without necrosis or infection, unspecified (principal); K86.1 Other chronic pancreatitis; F10.220 Alcohol dependence with intoxication, uncomplicated; N40.0 Benign prostatic hyperplasia without lower urinary tract symptoms; F17.210 Nicotine dependence, cigarettes, uncomplicated; E11.40 Type 2 diabetes mellitus with diabetic neuropathy, unspecified; I10 Essential (primary) hypertension; J44.9 Chronic obstructive pulmonary disease, unspecified; Z87.442 Personal history of urinary calculi; Z79.4 Long term (current) use of insulin; Z90.89 Acquired absence of other organs
CPT/HCPCS: J1170; J2405; J7030; Q9967

== ENCOUNTER 2020-03-10 17:30 | Emergency (ER) | payer MEDICAID ==
[~2020-03-10] VITALS: Ht 182.9 cm; Wt 90.9 kg
[~2020-03-10 17:30] MED LIST changes: +FLEXERIL5 MG; +LIORESAL 1010 MG/TAB PO; +NOVOLOG FLEX100 U/ML IJ
[2020-03-10 17:39] VITALS: TEMP 98.4
[2020-03-10 18:18] LABS: COLLECTION METHOD CLEAN CATCH
[2020-03-10 18:20] LABS: BASO # 0.1 (0.0-0.2); BASO % 0.6 % (0.0-2.0); EOS # 0.2 (0.0-0.7); GRAN # 6.4 (1.4-6.5); GRAN % 62.2 % (42.2-75.2); HEMATOCRIT 48.2 % (42.0-52.0); HEMOGLOBIN 16.1 g/dl (13.5-18.0); MEAN CELL VOLUME 91 fl (80.0-100.0); MEAN CORPUSCULAR HEMOGLOBIN 30 pg (27.0-31.0); MEAN CORPUSCULAR HGB CONC 33 g/dl (33.0-37.0); MEAN PLATELET VOLUME 10.3 fl (7.4-10.4); MONO # 0.6 (0.1-0.6); MONO % 5.5 % (1.7-9.3); PLATELET COUNT 263 K/mm3 (130-400); REDCELL DISTRIBUTION WIDTH-CV 13.8 % (11.5-14.5)
[2020-03-10 18:27] LABS: PH 5 (5-8); SQUAMOUS EPITHELIAL None Seen /hpf; URINE APPEARANCE Clear; URINE BACTERIA None Seen /hpf; URINE BILIRUBIN Negative (NEGATIVE); URINE BLOOD Negative (NEGATIVE); URINE COLOR Yellow; URINE GLUCOSE 3+ (NEGATIVE); URINE KETONE Negative (NEGATIVE); URINE LEUKOCYTE ESTERASE Negative (NEGATIVE); URINE NITRATE Negative (NEGATIVE); URINE PROTEIN(semi-quant) Negative (NEGATIVE); URINE RBC 0-2 /hpf; URINE UROBILINOGEN Negative (NEGATIVE)
[2020-03-10 18:34] LABS: ALANINE AMINOTRANSFERASE 19 U/L (4-49); ALBUMIN 4.3 gm/dL (3.5-5.0); ALKALINE PHOSPHATASE 149 U/L (50-136); ANION GAP 11 mmol/L (7-16); AST,SGOT 20 U/L (15-37); BILIRUBIN,TOTAL 0.5 mg/dL (0.0-1.0); BLOOD UREA NITROGEN 10 mg/dL (9-20); C-REACTIVE PROTEIN 1.1 mg/dL (0.0-0.9); CALCIUM 9.3 mg/dL (8.4-10.2); CARBON DIOXIDE 22 mmol/L (22-30); CHLORIDE 98 mmol/L (98-107); CREATININE, serum 0.62 (0.66-1.25); LIPASE 102 U/L (23-300); POTASSIUM 4.3 mmol/L (3.4-5.0); SODIUM 131 mmol/L (137-145); TOTAL PROTEIN 7.8 gm/dL (6.4-8.2)
[2020-03-10 18:35] LABS: GLUCOSE 510 mg/dL (74-106)
[2020-03-10 18:44] LABS: TROPONIN-I < 0.012 ng/mL (0.000-0.035)
[2020-03-10 20:05] VITALS: BP 115/78; PULSE 87
== END 2020-03-10 20:05 | disposition home or self-care (01) ==
LOC: COL.ER 17:30
PROVIDERS: Emergency Medicine
DX: E11.65 Type 2 diabetes mellitus with hyperglycemia (principal); R10.2 Pelvic and perineal pain; I10 Essential (primary) hypertension; Z86.73 Personal history of transient ischemic attack (TIA), and cerebral infarction without residual deficits; Z79.4 Long term (current) use of insulin; Z87.19 Personal history of other diseases of the digestive system
CPT/HCPCS: J1170; J1815; J2405; J7030

== ENCOUNTER 2020-03-13 18:16 | Emergency (ER) | payer MEDICAID ==
[~2020-03-13] VITALS: Ht 182.9 cm; Wt 90.9 kg
[2020-03-13 18:28] VITALS: TEMP 97
[2020-03-13] MEDS ORDERED: DILAUDID 4MG TAB4 MG PO (18:41)
[2020-03-13] MEDS ORDERED: CIALIS5 MG PO (18:43)
[2020-03-13 19:10] LABS: COLLECTION METHOD CLEAN CATCH
[2020-03-13 19:20] LABS: BASO % 0.3 % (0.0-2.0); EOS # 0.3 (0.0-0.7); EOS % 2.4 % (0-4.0); GRAN % 64.2 % (42.2-75.2); HEMATOCRIT 45.8 % (42.0-52.0); HEMOGLOBIN 15.3 g/dl (13.5-18.0); LYMPH # 2.9 (1.2-3.4); LYMPH % 26.5 % (20.0-51.0); MEAN CELL VOLUME 92 fl (80.0-100.0); MEAN CORPUSCULAR HEMOGLOBIN 31 pg (27.0-31.0); MEAN CORPUSCULAR HGB CONC 33 g/dl (33.0-37.0); MEAN PLATELET VOLUME 9.9 fl (7.4-10.4); MONO # 0.7 (0.1-0.6); PLATELET COUNT 284 K/mm3 (130-400); REDCELL DISTRIBUTION WIDTH-CV 14.2 % (11.5-14.5)
[2020-03-13 19:23] LABS: MUCOUS Present /lpf; PH 6 (5-8); SQUAMOUS EPITHELIAL None Seen /hpf; URINE APPEARANCE Clear; URINE BACTERIA None Seen /hpf; URINE BILIRUBIN Negative (NEGATIVE); URINE BLOOD Negative (NEGATIVE); URINE COLOR Yellow; URINE GLUCOSE 3+ (NEGATIVE); URINE KETONE Negative (NEGATIVE); URINE LEUKOCYTE ESTERASE Negative (NEGATIVE); URINE NITRATE Negative (NEGATIVE); URINE PROTEIN(semi-quant) Negative (NEGATIVE); URINE RBC 0-2 /hpf; URINE UROBILINOGEN Negative (NEGATIVE)
[2020-03-13 19:32] LABS: ALANINE AMINOTRANSFERASE 21 U/L (4-49); ALBUMIN 4.1 gm/dL (3.5-5.0); ALKALINE PHOSPHATASE 126 U/L (50-136); ANION GAP 8 mmol/L (7-16); AST,SGOT 19 U/L (15-37); BILIRUBIN,TOTAL 0.4 mg/dL (0.0-1.0); BLOOD UREA NITROGEN 11 mg/dL (9-20); C-REACTIVE PROTEIN 0.7 mg/dL (0.0-0.9); CALCIUM 9.4 mg/dL (8.4-10.2); CARBON DIOXIDE 24 mmol/L (22-30); CHLORIDE 104 mmol/L (98-107); GLUCOSE 317 mg/dL (74-106); LIPASE 120 U/L (23-300); POTASSIUM 3.9 mmol/L (3.4-5.0); SODIUM 136 mmol/L (137-145); TOTAL PROTEIN 7.6 gm/dL (6.4-8.2)
[2020-03-13 19:46] LABS: TROPONIN-I < 0.012 ng/mL (0.000-0.035)
[2020-03-13 20:59] VITALS: BP 163/108; PULSE 70
== END 2020-03-13 21:04 | disposition home or self-care (01) ==
LOC: COL.ER 18:16
PROVIDERS: Emergency Medicine
DX: M54.5 Low back pain (principal); R10.9 Unspecified abdominal pain; G89.29 Other chronic pain; E11.65 Type 2 diabetes mellitus with hyperglycemia; I10 Essential (primary) hypertension; M47.896 Other spondylosis, lumbar region; Z90.49 Acquired absence of other specified parts of digestive tract; Z79.4 Long term (current) use of insulin
CPT/HCPCS: J1170; J2405; J7030; Q9967

== ENCOUNTER 2020-03-26 08:58 | Emergency (ER) | payer MEDICAID ==
[~2020-03-26] VITALS: Ht 182.9 cm; Wt 90.9 kg
[~2020-03-26 08:58] MED LIST changes: +CIALIS5 MG PO; +LIDODERM 5% PATC1 EA TP
[2020-03-26 09:09] VITALS: TEMP 98.5
[2020-03-26 09:37] LABS: BASO # 0.1 (0.0-0.2); BASO % 0.6 % (0.0-2.0); EOS # 0.2 (0.0-0.7); EOS % 1.8 % (0-4.0); GRAN # 7.6 (1.4-6.5); GRAN % 70.9 % (42.2-75.2); HEMATOCRIT 46.3 % (42.0-52.0); HEMOGLOBIN 15.3 g/dl (13.5-18.0); LYMPH # 2.2 (1.2-3.4); LYMPH % 20.7 % (20.0-51.0); MEAN CELL VOLUME 92 fl (80.0-100.0); MEAN CORPUSCULAR HEMOGLOBIN 30 pg (27.0-31.0); MEAN CORPUSCULAR HGB CONC 33 g/dl (33.0-37.0); MEAN PLATELET VOLUME 9.3 fl (7.4-10.4); MONO # 0.6 (0.1-0.6); MONO % 5.4 % (1.7-9.3); PLATELET COUNT 419 K/mm3 (130-400); RED BLOOD COUNT 5.04 M/mm3 (4.20-5.60); REDCELL DISTRIBUTION WIDTH-CV 14.6 % (11.5-14.5)
[2020-03-26 09:51] LABS: BILIRUBIN,TOTAL 0.5 mg/dL (0.0-1.0); C-REACTIVE PROTEIN 1.5 mg/dL (0.0-0.9); CALCIUM 9.3 mg/dL (8.4-10.2); CREATININE, serum 0.45 (0.66-1.25); POTASSIUM 3.9 mmol/L (3.4-5.0); TOTAL PROTEIN 7.5 gm/dL (6.4-8.2)
[2020-03-26 10:28] LABS: COLLECTION METHOD CLEAN CATCH
[2020-03-26 10:38] LABS: PH 6 (5-8); SQUAMOUS EPITHELIAL None Seen /hpf; URINE APPEARANCE Clear; URINE BACTERIA None Seen /hpf; URINE BILIRUBIN Negative (NEGATIVE); URINE BLOOD Negative (NEGATIVE); URINE COLOR Yellow; URINE GLUCOSE 3+ (NEGATIVE); URINE KETONE Trace (NEGATIVE); URINE LEUKOCYTE ESTERASE Negative (NEGATIVE); URINE NITRATE Negative (NEGATIVE); URINE PROTEIN(semi-quant) Negative (NEGATIVE); URINE RBC 0-2 /hpf; URINE UROBILINOGEN Negative (NEGATIVE)
[2020-03-26 11:18] VITALS: BP 144/96; PULSE 84
== END 2020-03-26 11:15 | disposition home or self-care (01) ==
LOC: COL.ER 08:58
PROVIDERS: Physician Assistant
DX: G89.29 Other chronic pain (principal); R10.9 Unspecified abdominal pain; F10.10 Alcohol abuse, uncomplicated; K21.9 Gastro-esophageal reflux disease without esophagitis; E11.42 Type 2 diabetes mellitus with diabetic polyneuropathy; R00.0 Tachycardia, unspecified; R11.0 Nausea; R19.7 Diarrhea, unspecified; M47.816 Spondylosis without myelopathy or radiculopathy, lumbar region; Z79.84 Long term (current) use of oral hypoglycemic drugs; Z98.890 Other specified postprocedural states; Z79.899 Other long term (current) drug therapy; Z87.19 Personal history of other diseases of the digestive system; Z90.49 Acquired absence of other specified parts of digestive tract
CPT/HCPCS: J1170; J2405; J7030

== ENCOUNTER 2020-04-01 17:14 | Emergency (ER) | payer MEDICAID ==
[~2020-04-01] VITALS: Ht 182.9 cm; Wt 90.9 kg
[2020-04-01 17:23] VITALS: TEMP 98.2
[2020-04-01 18:34] LABS: COLLECTION METHOD CLEAN CATCH
[2020-04-01 18:36] LABS: BASO % 0.5 % (0.0-2.0); EOS # 0.2 (0.0-0.7); EOS % 1.9 % (0-4.0); GRAN # 5.3 (1.4-6.5); GRAN % 59.3 % (42.2-75.2); HEMATOCRIT 43.8 % (42.0-52.0); HEMOGLOBIN 14.6 g/dl (13.5-18.0); LYMPH # 2.7 (1.2-3.4); LYMPH % 30.9 % (20.0-51.0); MEAN CELL VOLUME 93 fl (80.0-100.0); MEAN CORPUSCULAR HEMOGLOBIN 31 pg (27.0-31.0); MEAN CORPUSCULAR HGB CONC 33 g/dl (33.0-37.0); MEAN PLATELET VOLUME 9.9 fl (7.4-10.4); MONO # 0.6 (0.1-0.6); MONO % 6.7 % (1.7-9.3); PLATELET COUNT 335 K/mm3 (130-400); REDCELL DISTRIBUTION WIDTH-CV 14.6 % (11.5-14.5)
[2020-04-01 18:40] LABS: PH 6 (5-8); SQUAMOUS EPITHELIAL 0-2 /hpf; URINE APPEARANCE Clear; URINE BACTERIA None Seen /hpf; URINE BILIRUBIN Negative (NEGATIVE); URINE BLOOD Negative (NEGATIVE); URINE COLOR Yellow; URINE GLUCOSE 3+ (NEGATIVE); URINE KETONE Trace (NEGATIVE); URINE LEUKOCYTE ESTERASE Negative (NEGATIVE); URINE NITRATE Negative (NEGATIVE); URINE PROTEIN(semi-quant) Negative (NEGATIVE); URINE RBC 0-2 /hpf
[2020-04-01 18:47] LABS: ALBUMIN 3.7 gm/dL (3.5-5.0); BILIRUBIN,TOTAL 0.5 mg/dL (0.0-1.0); C-REACTIVE PROTEIN 1.7 mg/dL (0.0-0.9); CALCIUM 9.1 mg/dL (8.4-10.2); CREATININE, serum 0.52 (0.66-1.25); POTASSIUM 3.8 mmol/L (3.4-5.0)
[2020-04-01 19:59] VITALS: BP 163/96; PULSE 73
== END 2020-04-01 19:58 | disposition home or self-care (01) ==
LOC: COL.ER 17:14
PROVIDERS: Nurse Practitioner
DX: R10.13 Epigastric pain (principal); R10.32 Left lower quadrant pain; E11.9 Type 2 diabetes mellitus without complications; I10 Essential (primary) hypertension; J44.9 Chronic obstructive pulmonary disease, unspecified; F17.210 Nicotine dependence, cigarettes, uncomplicated; Z79.84 Long term (current) use of oral hypoglycemic drugs; Z79.899 Other long term (current) drug therapy; Z90.49 Acquired absence of other specified parts of digestive tract
CPT/HCPCS: J1170; J2405; J7030

== ENCOUNTER → 2020-04-12 | Outpatient (CLI) | payer MEDICAID | LOC: COL.LAB 08:31 | DX: Z01.812 Encounter for preprocedural laboratory examination (principal); Z20.828 Contact with and (suspected) exposure to other viral communicable diseases ==

== ENCOUNTER 2020-04-14 15:01 | Emergency (ER) | payer MEDICAID ==
[~2020-04-14] VITALS: Ht 182.9 cm; Wt 84.1 kg
[2020-04-14 15:07] VITALS: TEMP 98.9
[2020-04-14 15:42] LABS: BASO % 0.5 % (0.0-2.0); EOS # 0.2 (0.0-0.7); EOS % 2.7 % (0-4.0); GRAN # 4.7 (1.4-6.5); GRAN % 57.2 % (42.2-75.2); HEMATOCRIT 43.3 % (42.0-52.0); HEMOGLOBIN 14.5 g/dl (13.5-18.0); LYMPH # 2.5 (1.2-3.4); MEAN CELL VOLUME 94 fl (80.0-100.0); MEAN CORPUSCULAR HEMOGLOBIN 31 pg (27.0-31.0); MEAN CORPUSCULAR HGB CONC 34 g/dl (33.0-37.0); MEAN PLATELET VOLUME 9.7 fl (7.4-10.4); MONO # 0.8 (0.1-0.6); MONO % 9.1 % (1.7-9.3); PLATELET COUNT 345 K/mm3 (130-400); RED BLOOD COUNT 4.62 M/mm3 (4.20-5.60); REDCELL DISTRIBUTION WIDTH-CV 14.8 % (11.5-14.5)
[2020-04-14 15:57] LABS: ALBUMIN 3.6 gm/dL (3.5-5.0); BILIRUBIN,TOTAL 0.4 mg/dL (0.0-1.0); C-REACTIVE PROTEIN 1.6 mg/dL (0.0-0.9); CALCIUM 8.9 mg/dL (8.4-10.2); CREATININE, serum 0.5 (0.66-1.25); POTASSIUM 3.7 mmol/L (3.4-5.0); TOTAL PROTEIN 6.9 gm/dL (6.4-8.2)
[2020-04-14] MEDS ORDERED: PHENERGAN 25 TA25 MG PO (16:28)
[2020-04-14 17:15] VITALS: BP 160/78; PULSE 87
== END 2020-04-14 17:15 | disposition home or self-care (01) ==
LOC: COL.ER 15:01
PROVIDERS: Emergency Medicine
DX: R10.9 Unspecified abdominal pain (principal); M54.5 Low back pain; G89.29 Other chronic pain; F32.9 Major depressive disorder, single episode, unspecified; F17.210 Nicotine dependence, cigarettes, uncomplicated; F10.20 Alcohol dependence, uncomplicated; Z79.4 Long term (current) use of insulin
CPT/HCPCS: J1170; J1790; J7030

== ENCOUNTER 2020-04-25 19:32 | Emergency (ER) | payer MEDICAID ==
[~2020-04-25] VITALS: Ht 182.9 cm; Wt 77.3 kg
[2020-04-25 22:07] LABS: BASO # 0.1 (0.0-0.2); BASO % 0.5 % (0.0-2.0); EOS # 0.3 (0.0-0.7); EOS % 2.4 % (0-4.0); GRAN # 6.3 (1.4-6.5); GRAN % 60.4 % (42.2-75.2); HEMATOCRIT 47.4 % (42.0-52.0); HEMOGLOBIN 15.6 g/dl (13.5-18.0); LYMPH % 28.4 % (20.0-51.0); MEAN CELL VOLUME 94 fl (80.0-100.0); MEAN CORPUSCULAR HEMOGLOBIN 31 pg (27.0-31.0); MEAN CORPUSCULAR HGB CONC 33 g/dl (33.0-37.0); MEAN PLATELET VOLUME 9.6 fl (7.4-10.4); MONO # 0.8 (0.1-0.6); MONO % 7.2 % (1.7-9.3); PLATELET COUNT 431 K/mm3 (130-400); RED BLOOD COUNT 5.03 M/mm3 (4.20-5.60); REDCELL DISTRIBUTION WIDTH-CV 15.8 % (11.5-14.5)
[2020-04-25 22:19] LABS: ALANINE AMINOTRANSFERASE 30 U/L (4-49); ALKALINE PHOSPHATASE 200 U/L (50-136); ANION GAP 9 mmol/L (7-16); AST,SGOT 22 U/L (15-37); BILIRUBIN,TOTAL 0.7 mg/dL (0.0-1.0); BLOOD UREA NITROGEN 14 mg/dL (9-20); C-REACTIVE PROTEIN 1.2 mg/dL (0.0-0.9); CALCIUM 9.2 mg/dL (8.4-10.2); CARBON DIOXIDE 22 mmol/L (22-30); CHLORIDE 104 mmol/L (98-107); GLUCOSE 299 mg/dL (74-106); LIPASE 172 U/L (23-300); POTASSIUM 3.7 mmol/L (3.4-5.0); SODIUM 135 mmol/L (137-145); TOTAL PROTEIN 7.4 gm/dL (6.4-8.2)
[2020-04-25 22:32] LABS: TROPONIN-I < 0.012 ng/mL (0.000-0.035)
[2020-04-25 23:18] VITALS: BP 140/72; PULSE 64; TEMP 97
== END 2020-04-25 23:18 | disposition home or self-care (01) ==
LOC: COL.ER 19:32
PROVIDERS: Emergency Medicine
DX: R10.11 Right upper quadrant pain (principal); R10.12 Left upper quadrant pain; G89.29 Other chronic pain; E11.9 Type 2 diabetes mellitus without complications; I10 Essential (primary) hypertension; F17.210 Nicotine dependence, cigarettes, uncomplicated; Z79.4 Long term (current) use of insulin
CPT/HCPCS: J1170; J1790

== ENCOUNTER 2020-06-02 11:57 | Emergency (ER) | payer MEDICAID ==
[~2020-06-02] VITALS: Ht 182.9 cm; Wt 81.8 kg
[2020-06-02 12:02] VITALS: TEMP 97.9
[2020-06-02 12:25] LABS: BASO # 0.1 (0.0-0.2); BASO % 0.4 % (0.0-2.0); EOS # 0.2 (0.0-0.7); EOS % 1.8 % (0-4.0); GRAN # 8.7 (1.4-6.5); GRAN % 72.2 % (42.2-75.2); HEMATOCRIT 41.7 % (42.0-52.0); HEMOGLOBIN 13.9 g/dl (13.5-18.0); LYMPH # 2.3 (1.2-3.4); LYMPH % 18.8 % (20.0-51.0); MEAN CELL VOLUME 95 fl (80.0-100.0); MEAN CORPUSCULAR HEMOGLOBIN 32 pg (27.0-31.0); MEAN CORPUSCULAR HGB CONC 33 g/dl (33.0-37.0); MEAN PLATELET VOLUME 10.2 fl (7.4-10.4); MONO # 0.7 (0.1-0.6); MONO % 6.2 % (1.7-9.3); PLATELET COUNT 330 K/mm3 (130-400); RED BLOOD COUNT 4.39 M/mm3 (4.20-5.60); REDCELL DISTRIBUTION WIDTH-CV 14.1 % (11.5-14.5)
[2020-06-02] MEDS ORDERED: ZOLOFT 100MG100 MG PO (12:29)
[2020-06-02 12:37] LABS: ALBUMIN 3.4 gm/dL (3.5-5.0); BILIRUBIN,TOTAL 0.6 mg/dL (0.0-1.0); C-REACTIVE PROTEIN 1.3 mg/dL (0.0-0.9); CALCIUM 8.7 mg/dL (8.4-10.2); CREATININE, serum 0.41 (0.66-1.25); MAGNESIUM 1.8 mg/dL (1.6-2.3); POTASSIUM 4.3 mmol/L (3.4-5.0); TOTAL PROTEIN 6.9 gm/dL (6.4-8.2)
[2020-06-02 13:14] LABS: COLLECTION METHOD CLEAN CATCH
[2020-06-02 13:28] LABS: PH 6 (5-8); SQUAMOUS EPITHELIAL None Seen /hpf; URINE APPEARANCE Clear; URINE BACTERIA None Seen /hpf; URINE BILIRUBIN Negative (NEGATIVE); URINE BLOOD Negative (NEGATIVE); URINE COLOR Yellow; URINE GLUCOSE 3+ (NEGATIVE); URINE KETONE 1+ (NEGATIVE); URINE LEUKOCYTE ESTERASE Negative (NEGATIVE); URINE NITRATE Negative (NEGATIVE); URINE PROTEIN(semi-quant) Negative (NEGATIVE); URINE RBC None Seen /hpf; URINE UROBILINOGEN Negative (NEGATIVE)
[2020-06-02 13:38] LABS: MUCOUS Present /lpf
[2020-06-02 13:55] VITALS: BP 154/97; PULSE 62
== END 2020-06-02 14:10 | disposition home or self-care (01) ==
LOC: COL.ER 11:57
PROVIDERS: Emergency Medicine
DX: R10.12 Left upper quadrant pain (principal); G89.29 Other chronic pain; Z79.4 Long term (current) use of insulin
CPT/HCPCS: J1170; J1790; J1885; J7030

== ENCOUNTER 2020-06-13 21:32 | Emergency (ER) | payer MEDICAID ==
[~2020-06-13] VITALS: Ht 182.9 cm; Wt 74.5 kg
[2020-06-13 21:42] VITALS: TEMP 98.3
[2020-06-13 22:07] LABS: BASO # 0.1 (0.0-0.2); BASO % 0.5 % (0.0-2.0); EOS # 0.3 (0.0-0.7); EOS % 2.3 % (0-4.0); GRAN # 7.2 (1.4-6.5); GRAN % 64.2 % (42.2-75.2); HEMOGLOBIN 14.7 g/dl (13.5-18.0); LYMPH # 2.8 (1.2-3.4); LYMPH % 25.1 % (20.0-51.0); MEAN CELL VOLUME 97 fl (80.0-100.0); MEAN CORPUSCULAR HEMOGLOBIN 32 pg (27.0-31.0); MEAN CORPUSCULAR HGB CONC 33 g/dl (33.0-37.0); MONO # 0.8 (0.1-0.6); MONO % 7.2 % (1.7-9.3); PLATELET COUNT 356 K/mm3 (130-400); RED BLOOD COUNT 4.65 M/mm3 (4.20-5.60); REDCELL DISTRIBUTION WIDTH-CV 13.8 % (11.5-14.5)
[2020-06-13 22:20] LABS: COLLECTION METHOD CLEAN CATCH
[2020-06-13 22:22] LABS: ALANINE AMINOTRANSFERASE 15 U/L (4-49); ALBUMIN 3.9 gm/dL (3.5-5.0); ALKALINE PHOSPHATASE 118 U/L (50-136); ANION GAP 11 mmol/L (7-16); AST,SGOT 17 U/L (15-37); BILIRUBIN,TOTAL 0.4 mg/dL (0.0-1.0); BLOOD UREA NITROGEN 7 mg/dL (9-20); C-REACTIVE PROTEIN 3.2 mg/dL (0.0-0.9); CALCIUM 9.5 mg/dL (8.4-10.2); CARBON DIOXIDE 25 mmol/L (22-30); CHLORIDE 99 mmol/L (98-107); CREATININE, serum 0.56 (0.66-1.25); GLUCOSE 297 mg/dL (74-106); LIPASE 243 U/L (23-300); PHOSPHOROUS 4.4 mg/dL (2.5-4.5); POTASSIUM 4.4 mmol/L (3.4-5.0); SODIUM 135 mmol/L (137-145); TOTAL PROTEIN 7.4 gm/dL (6.4-8.2)
[2020-06-13 22:27] LABS: MUCOUS Present /lpf; PH 5 (5-8); SQUAMOUS EPITHELIAL None Seen /hpf; URINE APPEARANCE Clear; URINE BACTERIA None Seen /hpf; URINE BILIRUBIN Negative (NEGATIVE); URINE BLOOD Negative (NEGATIVE); URINE COLOR Yellow; URINE GLUCOSE 3+ (NEGATIVE); URINE KETONE Negative (NEGATIVE); URINE LEUKOCYTE ESTERASE Negative (NEGATIVE); URINE NITRATE Negative (NEGATIVE); URINE PROTEIN(semi-quant) Negative (NEGATIVE); URINE RBC 0-2 /hpf; URINE UROBILINOGEN Negative (NEGATIVE)
[2020-06-13 22:31] LABS: ALCOHOL(ethanol),MEDICAL < 10 mg/dL; TROPONIN-I < 0.012 ng/mL (0.000-0.035)
[2020-06-13 23:23] VITALS: BP 134/89; PULSE 76
== END 2020-06-13 23:25 | disposition home or self-care (01) ==
LOC: COL.ER 21:32
PROVIDERS: Emergency Medicine
DX: K86.1 Other chronic pancreatitis (principal); E11.9 Type 2 diabetes mellitus without complications; I10 Essential (primary) hypertension; F17.210 Nicotine dependence, cigarettes, uncomplicated; Z79.4 Long term (current) use of insulin
CPT/HCPCS: J1170; J1790; J7030

== ENCOUNTER 2020-06-26 20:37 | Emergency (ER) | payer MEDICAID ==
[~2020-06-26] VITALS: Ht 182.9 cm; Wt 75.0 kg
[2020-06-26 21:06] LABS: BASO # 0.1 (0.0-0.2); BASO % 0.6 % (0.0-2.0); EOS # 0.3 (0.0-0.7); EOS % 3.4 % (0-4.0); GRAN # 6.4 (1.4-6.5); GRAN % 63.3 % (42.2-75.2); HEMATOCRIT 45.1 % (42.0-52.0); HEMOGLOBIN 14.7 g/dl (13.5-18.0); LYMPH # 2.6 (1.2-3.4); LYMPH % 25.8 % (20.0-51.0); MEAN CELL VOLUME 97 fl (80.0-100.0); MEAN CORPUSCULAR HEMOGLOBIN 32 pg (27.0-31.0); MEAN CORPUSCULAR HGB CONC 33 g/dl (33.0-37.0); MEAN PLATELET VOLUME 10.3 fl (7.4-10.4); MONO # 0.6 (0.1-0.6); PLATELET COUNT 334 K/mm3 (130-400); RED BLOOD COUNT 4.64 M/mm3 (4.20-5.60); REDCELL DISTRIBUTION WIDTH-CV 13.6 % (11.5-14.5)
[2020-06-26 21:07] LABS: COLLECTION METHOD CLEAN CATCH
[2020-06-26 21:19] LABS: PH 6 (5-8); SQUAMOUS EPITHELIAL None Seen /hpf; URINE APPEARANCE Clear; URINE BACTERIA None Seen /hpf; URINE BILIRUBIN Negative (NEGATIVE); URINE BLOOD Negative (NEGATIVE); URINE COLOR Yellow; URINE GLUCOSE 3+ (NEGATIVE); URINE KETONE Negative (NEGATIVE); URINE LEUKOCYTE ESTERASE Negative (NEGATIVE); URINE NITRATE Negative (NEGATIVE); URINE PROTEIN(semi-quant) Negative (NEGATIVE); URINE RBC 0-2 /hpf; URINE UROBILINOGEN Negative (NEGATIVE)
[2020-06-26 21:19] LABS: ALBUMIN 3.8 gm/dL (3.5-5.0); BILIRUBIN,TOTAL 0.5 mg/dL (0.0-1.0); CALCIUM 8.9 mg/dL (8.4-10.2); CREATININE, serum 0.48 (0.66-1.25); POTASSIUM 4.5 mmol/L (3.4-5.0); TOTAL PROTEIN 7.1 gm/dL (6.4-8.2)
[2020-06-26 21:38] LABS: MAGNESIUM 1.9 mg/dL (1.6-2.3)
[2020-06-26] MEDS ORDERED: PHENERGAN 25 TA25 MG PO (21:52)
[2020-06-26 23:00] VITALS: BP 141/102; PULSE 90; TEMP 98
== END 2020-06-26 23:16 | disposition home or self-care (01) ==
LOC: COL.ER 20:37
PROVIDERS: Emergency Medicine
DX: E11.65 Type 2 diabetes mellitus with hyperglycemia (principal); K86.1 Other chronic pancreatitis; Z79.4 Long term (current) use of insulin
CPT/HCPCS: J0780; J1170; J1815; J7030

== ENCOUNTER 2020-09-19 09:29 | Emergency (ER) | payer MEDICAID ==
[~2020-09-19] VITALS: Ht 182.9 cm; Wt 77.3 kg
[2020-09-19 09:37] VITALS: TEMP 98.4
[2020-09-19 11:43] VITALS: BP 141/85; PULSE 80
== END 2020-09-19 11:45 | disposition home or self-care (01) ==
LOC: COL.ER 09:29
DX: R53.1 Weakness (principal); G89.29 Other chronic pain; E11.9 Type 2 diabetes mellitus without complications; F17.210 Nicotine dependence, cigarettes, uncomplicated; Z87.442 Personal history of urinary calculi; Z90.49 Acquired absence of other specified parts of digestive tract; Z79.4 Long term (current) use of insulin; Z95.818 Presence of other cardiac implants and grafts
CPT/HCPCS: J1200; J1630

== ENCOUNTER 2020-09-22 15:47 | Emergency (ER) | payer MEDICAID ==
[~2020-09-22] VITALS: Ht 182.9 cm; Wt 68.2 kg
[2020-09-22 15:51] VITALS: TEMP 97.4
[2020-09-22 16:12] LABS: BASO # 0.1 (0.0-0.2); BASO % 0.5 % (0.0-2.0); GRAN # 10.3 (1.4-6.5); GRAN % 77.2 % (42.2-75.2); HEMOGLOBIN 17.5 g/dl (13.5-18.0); LYMPH # 2.2 (1.2-3.4); LYMPH % 16.4 % (20.0-51.0); MEAN CELL VOLUME 89 fl (80.0-100.0); MEAN CORPUSCULAR HEMOGLOBIN 28 pg (27.0-31.0); MEAN CORPUSCULAR HGB CONC 32 g/dl (33.0-37.0); MEAN PLATELET VOLUME 10.5 fl (7.4-10.4); MONO # 0.6 (0.1-0.6); MONO % 4.8 % (1.7-9.3); PLATELET COUNT 362 K/mm3 (130-400); REDCELL DISTRIBUTION WIDTH-CV 12.8 % (11.5-14.5)
[2020-09-22 16:17] LABS: HEMATOCRIT 55.4 % (42.0-52.0)
[2020-09-22 16:23] LABS: ANION GAP 24 mmol/L (7-16); BLOOD UREA NITROGEN 14 mg/dL (9-20); CALCIUM 10.5 mg/dL (8.4-10.2); CHLORIDE 111 mmol/L (98-107); CREATININE, serum 0.64 (0.66-1.25); GLUCOSE 304 mg/dL (74-106); POTASSIUM 4.3 mmol/L (3.4-5.0); SODIUM 142 mmol/L (137-145)
[2020-09-22 16:29] LABS: CARBON DIOXIDE 7 mmol/L (22-30)
[2020-09-22 16:34] LABS: TROPONIN-I < 0.012 ng/mL (0.000-0.035)
[2020-09-22 16:46] LABS: ALANINE AMINOTRANSFERASE 24 U/L (4-49); ALBUMIN 5.1 gm/dL (3.5-5.0); ALKALINE PHOSPHATASE 184 U/L (50-136); AST,SGOT 27 U/L (15-37); BILIRUBIN UNCONJUGATED 0.3 mg/dL (0.0-1.1); BILIRUBIN,DIRECT 0.2 mg/dL (0.0-0.4); BILIRUBIN,TOTAL 0.5 mg/dL (0.0-1.0); TOTAL PROTEIN 9.5 gm/dL (6.4-8.2)
[2020-09-22 17:09] LABS: LIPASE 55 U/L (23-300); MAGNESIUM 2.1 mg/dL (1.6-2.3)
[2020-09-22 17:10] LABS: COLLECTION METHOD CLEAN CATCH
[2020-09-22 17:11] LABS: ALCOHOL(ethanol),MEDICAL < 10 mg/dL
[2020-09-22 17:13] LABS: ACETAMINOPHEN 15 ug/mL (10-30); ACETONE,SERUM SMALL; SALICYLATE < 1.0 mg/dL
[2020-09-22 17:27] LABS: MUCOUS Present /lpf; PH 5 (5-8); SQUAMOUS EPITHELIAL None Seen /hpf; URINE APPEARANCE Clear; URINE BACTERIA None Seen /hpf; URINE BILIRUBIN Negative (NEGATIVE); URINE BLOOD 1+ (NEGATIVE); URINE COLOR Yellow; URINE GLUCOSE 3+ (NEGATIVE); URINE KETONE 2+ (NEGATIVE); URINE LEUKOCYTE ESTERASE Negative (NEGATIVE); URINE NITRATE Negative (NEGATIVE); URINE PROTEIN(semi-quant) 2+ (NEGATIVE); URINE RBC 0-2 /hpf; URINE UROBILINOGEN Negative (NEGATIVE)
[2020-09-22 19:00] VITALS: BP 158/100; PULSE 109
== END 2020-09-22 19:00 | disposition short-term general hospital (02) ==
LOC: COL.ER 15:47
PROVIDERS: Emergency Medicine
DX: R11.2 Nausea with vomiting, unspecified (principal); R53.1 Weakness; R00.0 Tachycardia, unspecified; F17.200 Nicotine dependence, unspecified, uncomplicated; Z20.828 Contact with and (suspected) exposure to other viral communicable diseases; Z90.49 Acquired absence of other specified parts of digestive tract
CPT/HCPCS: J1200; J1630; J7030; J7120

== ENCOUNTER 2020-11-12 23:09 | Emergency (ER) | payer MEDICAID ==
[~2020-11-12] VITALS: Ht 182.9 cm; Wt 79.5 kg
[2020-11-12 23:19] VITALS: TEMP 97.9
[2020-11-13 00:14] LABS: INR 1.1 (0.8-3.0); PROTHROMBIN TIME 11.9 SECONDS (9.7-12.8)
[2020-11-13 00:16] LABS: BASO # 0.1 (0.0-0.2); BASO % 0.4 % (0.0-2.0); EOS # 0.1 (0.0-0.7); EOS % 0.6 % (0-4.0); GRAN # 13.2 (1.4-6.5); GRAN % 78.4 % (42.2-75.2); HEMOGLOBIN 11.7 g/dl (13.5-18.0); LYMPH # 2.2 (1.2-3.4); LYMPH % 13.3 % (20.0-51.0); MEAN CELL VOLUME 84 fl (80.0-100.0); MEAN CORPUSCULAR HEMOGLOBIN 27 pg (27.0-31.0); MEAN CORPUSCULAR HGB CONC 32 g/dl (33.0-37.0); MEAN PLATELET VOLUME 10.7 fl (7.4-10.4); MONO # 1.1 (0.1-0.6); MONO % 6.6 % (1.7-9.3); PLATELET COUNT 324 K/mm3 (130-400); RED BLOOD COUNT 4.39 M/mm3 (4.20-5.60); REDCELL DISTRIBUTION WIDTH-CV 14.5 % (11.5-14.5)
[2020-11-13 00:17] LABS: HEMATOCRIT 36.7 % (42.0-52.0); PARTIAL THROMBOPLASTIN TIME 34.3 SECONDS (26.0-37.0)
[2020-11-13 00:19] LABS: ALANINE AMINOTRANSFERASE 23 U/L (4-49); ALBUMIN 3.7 gm/dL (3.5-5.0); ALKALINE PHOSPHATASE 140 U/L (50-136); ANION GAP 9 mmol/L (7-16); AST,SGOT 19 U/L (15-37); BILIRUBIN,TOTAL 0.3 mg/dL (0.0-1.0); BLOOD UREA NITROGEN 12 mg/dL (9-20); CALCIUM 9.2 mg/dL (8.4-10.2); CARBON DIOXIDE 27 mmol/L (22-30); CHLORIDE 96 mmol/L (98-107); CREATININE, serum 0.61 (0.66-1.25); GLUCOSE 359 mg/dL (74-106); LIPASE 47 U/L (23-300); POTASSIUM 3.8 mmol/L (3.4-5.0); SODIUM 132 mmol/L (137-145); TOTAL PROTEIN 6.9 gm/dL (6.4-8.2)
[2020-11-13 00:38] LABS: TROPONIN-I < 0.012 ng/mL (0.000-0.035)
[2020-11-13 04:39] LABS: COLLECTION METHOD CLEAN CATCH
[2020-11-13 04:44] LABS: PH 5 (5-8); SQUAMOUS EPITHELIAL None Seen /hpf; URINE APPEARANCE Clear; URINE BACTERIA None Seen /hpf; URINE BILIRUBIN Negative (NEGATIVE); URINE BLOOD Negative (NEGATIVE); URINE COLOR Yellow; URINE GLUCOSE 3+ (NEGATIVE); URINE KETONE Negative (NEGATIVE); URINE LEUKOCYTE ESTERASE Negative (NEGATIVE); URINE NITRATE Negative (NEGATIVE); URINE PROTEIN(semi-quant) Negative (NEGATIVE); URINE RBC None Seen /hpf; URINE UROBILINOGEN Negative (NEGATIVE); URINE WBC 0-2 /hpf
[2020-11-13 12:30] VITALS: BP 140/79; PULSE 75
== END 2020-11-13 13:10 | disposition short-term general hospital (02) ==
LOC: COL.ER 23:09
PROVIDERS: Emergency Medicine
DX: R10.9 Unspecified abdominal pain (principal); E86.0 Dehydration; E11.65 Type 2 diabetes mellitus with hyperglycemia; I95.9 Hypotension, unspecified; K86.1 Other chronic pancreatitis; Z87.442 Personal history of urinary calculi; Z90.49 Acquired absence of other specified parts of digestive tract; Z95.818 Presence of other cardiac implants and grafts; Z20.822 Contact with and (suspected) exposure to COVID-19; Z79.4 Long term (current) use of insulin; Z79.01 Long term (current) use of anticoagulants
CPT/HCPCS: J2270; J2405; J2543; J3370; J7030; J7040; J7050; Q9967

== ENCOUNTER 2020-12-27 07:55 | Outpatient (CLI) | payer MEDICAID ==
[~2020-12-27] VITALS: Ht 183 cm; Wt 78.8 kg
[2020-12-27 08:30] LABS: HEMATOCRIT 43.7 % (42.0-52.0); HEMOGLOBIN 13.7 g/dl (13.5-18.0); MEAN CELL VOLUME 81 fl (80.0-100.0); MEAN CORPUSCULAR HEMOGLOBIN 26 pg (27.0-31.0); MEAN CORPUSCULAR HGB CONC 31 g/dl (33.0-37.0); MEAN PLATELET VOLUME 10.1 fl (7.4-10.4); PLATELET COUNT 375 K/mm3 (130-400); RED BLOOD COUNT 5.37 M/mm3 (4.20-5.60); REDCELL DISTRIBUTION WIDTH-CV 15.1 % (11.5-14.5)
[2020-12-27 08:32] LABS: INR 0.9 (0.8-3.0); PROTHROMBIN TIME 9.9 SECONDS (9.7-12.8)
[2020-12-27 08:35] LABS: CALCIUM 9.8 mg/dL (8.4-10.2); CREATININE, serum 0.65 (0.66-1.25); POTASSIUM 4.2 mmol/L (3.4-5.0)
[2020-12-27 08:54] VITALS: BP 108/83; PULSE 97; TEMP 98.3
[2020-12-27] MEDS ORDERED: FOLIC ACID 11 MG/TA1 PO (09:21)
[2020-12-27] MEDS ORDERED: LIORESAL 1010 MG/TAB PO (09:21)
[2020-12-27] MEDS ORDERED: PHENERGAN 25 TA25 MG PO (09:26)
[2020-12-27] MEDS ORDERED: CARAFATE 1GM1 G PO (09:28)
[2020-12-27] MEDS ORDERED: MAG-OX 400400 MG/TAB PO (09:29)
[2020-12-27] MEDS ORDERED: PRINIVIL20 MG PO (09:30)
[2020-12-27] MEDS ORDERED: VALIUM 5MG T5 MG/TAB PO (09:31)
[2020-12-27] MEDS ORDERED: DAZIDOX10 MG PO (09:31)
[2020-12-27] MEDS ORDERED: PRIL40 PO (09:32)
[2020-12-27] MEDS ORDERED: ELIQUIS 5MG PO (09:32)
[2020-12-27] MEDS ORDERED: LIPITOR 40MG TA40 MG PO (09:34)
--- NOTE | 2020-12-27 09:45 | NUR ---
Report received from Lisa MAYER. Pt is sitting up on stretcher awake, states is ready to go. Dr. Sweeney came in to discuss JOCELINE results and follow up plan with patient and his significant other who is back at bs. pt remains in sinus rhythm on monitor, he is pwd with unlabored respirations while at rest. Pt informed of POC. I plan to discharge him at 1030 as probe was dc'd at 0930. We reviewed dc and fu instructions. pt denies any questions.
[2020-12-27 09:50] VITALS: BP 100/81; PULSE 81
[2020-12-27 10:00] VITALS: BP 119/79; PULSE 78
[2020-12-27 10:10] VITALS: BP 119/83; PULSE 75
[2020-12-27 10:25] VITALS: BP 121/85; PULSE 76
--- NOTE | 2020-12-27 10:25 | NUR ---
Pt is ready for discharge. He denies any questions about dc/fu instructions. He has been ambulatory in his room with steady gait with cane. iv is dc'd with cath intact, dressing applied. To exit via wheelchair to waiting taxi.
== END 2020-12-27 11:31 | disposition home or self-care (01) ==
LOC: COL.RAD
PROVIDERS: Internal Medicine Cardiovascular Disease
DX: G45.9 Transient cerebral ischemic attack, unspecified (principal); Z20.822 Contact with and (suspected) exposure to COVID-19
CPT/HCPCS: J2704

== ENCOUNTER → 2021-01-10 | Outpatient (CLI) | payer MEDICAID ==
[~2021-01-10] MED LIST changes: +ELIQUIS 5MG PO; +LIPITOR 40MG TA40 MG PO; +MAG-OX 400400 MG/TAB PO; +PRINIVIL20 MG PO; +VALIUM 5MG T5 MG/TAB PO
== END ==
LOC: COL.LAB 09:19
DX: Z01.818 Encounter for other preprocedural examination (principal); Z20.822 Contact with and (suspected) exposure to COVID-19

== ENCOUNTER → 2021-04-23 | Outpatient (CLI) | payer MEDICAID | LOC: COL.RAD 04-16 13:00 | DX: I63.9 Cerebral infarction, unspecified (principal); Z98.2 Presence of cerebrospinal fluid drainage device ==

== ENCOUNTER → 2021-04-29 | Emergency (ER) | payer MEDICAID ==
[~2021-04-29] VITALS: Ht 182.9 cm; Wt 81.8 kg
[2021-04-29 15:59] VITALS: BP 107/72; PULSE 92; TEMP 98.3
== END ==
LOC: COL.ER 15:50
DX: R07.9 Chest pain, unspecified (principal); R06.02 Shortness of breath

== ENCOUNTER → 2021-08-05 | Outpatient (CLI) | payer MEDICAID | LOC: COL.RAD 08:49 | DX: I63.9 Cerebral infarction, unspecified (principal); I72.0 Aneurysm of carotid artery; I51.89 Other ill-defined heart diseases; Z98.2 Presence of cerebrospinal fluid drainage device ==

== ENCOUNTER 2023-11-08 12:54 | Emergency (ER) | payer MEDICAID ==
[~2023-11-08] VITALS: Ht 182.9 cm; Wt 87.3 kg
[~2023-11-08 12:54] MED LIST changes: +AJOVY AUTO225 MG/1.5 SQ; +AJOVY225 MG/1.5 SQ; +ALBUTEROL0.83 MG/ML IH; +AMARYL4 MG PO; +ASPIRIN 81M81 MG/TA2 PO; +COMPLETE MULTI1 TAB PO; +IPRATROPIUM BROM3 M1 IH; +K-TAB10 PO; +KLOR-CON M1010 MEQ PO; +LASIX 20MG TABL20 MG PO; +LEVAQUIN 5500 MG/TA1 PO; -LYRICA 100MG C100 M1 PO; +LYRICA200 MG PO; +PLAVIX 75MG TAB75 MG PO; +PLETAL50 MG PO; +PROAIR HFA0.09 MG/AC IH; +PULMICORT0.5 MG/2 M IH; +REVATIO20 MG PO; +TRIAMCINOLONE A15 G3 TP
[2023-11-08 13:04] VITALS: BP 138/78; PULSE 76; TEMP 98.2
[2023-11-08 15:45] LABS: BASO # 0.1 K/mm3 (0.0-0.2); BASO % 0.5 % (0.0-2.0); EOS # 0.2 K/mm3 (0.0-0.7); EOS % 1.9 % (0.0-4.0); GRAN # 6.2 K/mm3 (1.4-6.5); GRAN % 66.4 % (42.2-75.2); HEMATOCRIT 38.3 % (42.0-52.0); HEMOGLOBIN 12.1 g/dl (13.5-18.0); LYMPH # 2.1 K/mm3 (1.2-3.4); MEAN CELL VOLUME 75 fl (80.0-100.0); MEAN CORPUSCULAR HEMOGLOBIN 24 pg (27-31); MEAN CORPUSCULAR HGB CONC 32 g/dl (33.0-37.0); MEAN PLATELET VOLUME 9.7 fl (7.4-10.4); MONO # 0.7 K/mm3 (0.1-0.6); MONO % 7.4 % (1.7-9.3); PLATELET COUNT 269 K/mm3 (130-400); RED BLOOD COUNT 5.14 M/mm3 (4.20-5.60)
[2023-11-08] MEDS ORDERED: diphenhydrAMINE 50 MG/ML 1 ML VIAL IM ONE (16:30)
[2023-11-08] MEDS ORDERED: HYDROmorphone 0.5 MG/0.5 ML SYRINGE IM ONE (16:30)
== END 2023-11-08 17:35 | disposition home or self-care (01) ==
LOC: COL.ER 12:54
PROVIDERS: Family Medicine
DX: I73.9 Peripheral vascular disease, unspecified (principal); L03.116 Cellulitis of left lower limb; L02.612 Cutaneous abscess of left foot; Z95.820 Peripheral vascular angioplasty status with implants and grafts
CPT/HCPCS: J1170; J1200

== ENCOUNTER → 2024-02-15 | Outpatient (CLI) | payer MEDICAID | LOC: MHCPAIN 08:59 | DX: M47.812 Spondylosis without myelopathy or radiculopathy, cervical region (principal); M48.02 Spinal stenosis, cervical region; F17.210 Nicotine dependence, cigarettes, uncomplicated; M54.50 Low back pain, unspecified; E11.9 Type 2 diabetes mellitus without complications; Z79.01 Long term (current) use of anticoagulants; Z86.73 Personal history of transient ischemic attack (TIA), and cerebral infarction without residual deficits | CPT/HCPCS: G0463 ==